=== PATIENT | male | born 1960 | race Caucasian/White ===

== ENCOUNTER 2021-07-02 13:00 | Outpatient (REF) | payer MEDICAID, SELFPAY ==
--- NOTE | ~2021-07-02 | US_ITS ---
EXAMINATION: US RETROPERITONEAL LIMITED (RENAL ONLY) CLINICAL INFORMATION: Kidney stone. COMPARISON: Previous renal ultrasound September 2017 and KUB May 2017 TECHNIQUE: Grayscale and color imaging of the kidneys FINDINGS: RIGHT KIDNEY: 8.6 x 5.4 x 5.6 cm (SAG x AP x TRV). The right kidney is smaller than the left. There may be right renal cortical thinning. Renal cortical echogenicity is normal. No calculi or focal parenchymal lesions. No hydronephrosis. LEFT KIDNEY: 11.7 x 6.3 x 5 cm (SAG x AP x TRV). The kidney is normal in size, contour, and echogenicity. Renal cortical thickness is normal. No calculi or focal parenchymal lesions. No hydronephrosis. US/US renal BI IMPRESSION: Small right kidney. No stone seen.
== END 2021-07-02 13:01 | disposition home or self-care (01) ==
LOC: HO.US 13:00
PROVIDERS: PCP Family Medicine; Visit Provider Urology
DX: N20.0 Calculus of kidney (principal)
CPT/HCPCS: 76775

== ENCOUNTER → 2021-07-11 14:08 | Outpatient (BNVA) | payer MEDICAID, SELFPAY | PROVIDERS: PCP Family Medicine; Visit Provider Urology | DX: N20.0 Calculus of kidney (principal) | CPT/HCPCS: 99212 ==

== ENCOUNTER 2022-07-05 12:31 | Outpatient (REF) | payer MEDICAID, SELFPAY ==
--- NOTE | ~2022-07-05 | US_ITS ---
EXAMINATION: US RETROPERITONEAL LIMITED (RENAL ONLY) CLINICAL INFORMATION: Calculus of kidney. COMPARISON: Ultrasound retroperitoneal limited (renal only) 07/02/2021 and 09/29/2017. X-ray abdomen KUB 05/28/2017. TECHNIQUE: Real-time imaging of the kidneys. FINDINGS: RIGHT KIDNEY: 8.2 x 4.2 x 4.6 cm (SAG x AP x TRV). The kidney is normal in contour and echogenicity. Some cortical thinning is seen. No calculi or focal parenchymal lesions. No hydronephrosis. LEFT KIDNEY: 12.8 x 5.3 x 5.7 cm (SAG x AP x TRV). The kidney is normal in size, contour, and echogenicity. Renal cortical thickness is normal. No calculi or focal parenchymal lesions. No hydronephrosis. US/US renal BI IMPRESSION: The right kidney is smaller and mildly atrophic compared to the left. No renal calculi are seen nor have they ever been seen on the available imaging studies.
== END 2022-07-05 12:32 | disposition home or self-care (01) ==
LOC: HO.US 12:31
PROVIDERS: PCP Family Medicine; Visit Provider Urology
DX: N20.0 Calculus of kidney (principal)
CPT/HCPCS: 76775

== ENCOUNTER → 2022-07-11 11:25 | Outpatient (BNVA) | payer MEDICAID, SELFPAY | PROVIDERS: PCP Family Medicine; Visit Provider Urology | DX: N52.9 Male erectile dysfunction, unspecified (principal); N20.0 Calculus of kidney | CPT/HCPCS: 99212 ==

== ENCOUNTER 2023-07-08 11:31 | Outpatient (REF) | payer BC, OTHER, SELFPAY ==
--- NOTE | ~2023-07-08 | US_ITS ---
EXAMINATION: US RETROPERITONEAL LIMITED (RENAL ONLY) CLINICAL INFORMATION: Calculus of kidney. COMPARISON: Renal ultrasound 07/05/2022 and 07/02/2021. X-ray KUB 05/28/2017. TECHNIQUE: Real-time imaging of the kidneys. FINDINGS: RIGHT KIDNEY: 9.2 x 5.4 x 5.1 cm (SAG x AP x TRV). The kidney is normal in size, contour, and echogenicity. Renal cortical thickness is normal. No calculi or focal parenchymal lesions. No hydronephrosis. LEFT KIDNEY: 11.4 x 5.8 x 4.9 cm (SAG x AP x TRV). The kidney is normal in size, contour, and echogenicity. Renal cortical thickness is normal. No calculi or focal parenchymal lesions. No hydronephrosis. US/US renal BI IMPRESSION: No renal calculi or hydronephrosis of either kidney.
== END 2023-07-08 11:32 | disposition home or self-care (01) ==
LOC: HO.US 11:31
PROVIDERS: PCP Family Medicine; Visit Provider Urology
DX: N20.0 Calculus of kidney (principal)
CPT/HCPCS: 76775

== ENCOUNTER 2023-07-17 11:29 | Outpatient (AMB) | payer BC, MEDICAID, SELFPAY ==
--- NOTE | 2023-07-17 11:38 | MHC.OFFVIS ---
Intake Intake Visit Reasons: 1Y US(SET) Intake Note: Patient presents today for a yearly follow up/US Meds- (Tadalafil) Allergies to Antibiotic- No Known Allergies Blood Thinner- None Patient stated he uses Tadalafil when he need it. Operations Dispatcher Required: No Accompanied by: Self / Same As Patient Allergies No Known Allergies [No Known Allergies*] Allergy (Verified 07/17/23 11:44) Medication List - Last Reconciled 07/17/23 by Vijay Mora MD tadalafil 20 mg PO ONCE PRN 30 days HPI HPI Comments History of Present Illness Details Griffin is a pleasant male. He is a patient of Dr. Oakley. He seen for the following urologic conditions - nephrolithiasis - erectile dysfunction Yearly No stone seen Courage fluids Continue tadalafil 20 mg on demand 12 month follow-up imaging Erectile dysfunction Tadalafil 20 mg p.r.n. Nephrolithiasis Prior history ESWL x2 Conservative management with fluid intake Imaging - 06/12 renal ultrasound small right kidney no stone seen - 06/13 renal ultrasound small right kidney stone - 06/14 renal ultrasound no stones seen PSA followed with PCP [facility] Medical History Renal stones Review of Systems Const Denies chills and Denies fever(s) Card Reports no additional complaints and Denies syncope Resp Denies cough GI Denies abdominal pain and Denies heartburn Reports as per HPI and Denies change in libido Neuro Denies syncope Psych Denies change in libido Endo Denies change in libido Physical Exam Const General: cooperative, healthy appearing, comfortable and no acute distress Orientation/consciousness: patient oriented x3 HEENT Face and sinus: Yes normal facial exam Mouth: moist mucous membranes Neck Neck: Yes normal visual inspection, Yes full ROM and Yes trachea midline Chest Chest palpation & inspection: normal inspection of the chest Resp Effort & Inspection: normal respiratory effort, able to speak in complete sentences and no respiratory distress GI Inspection: Yes normal to inspection Back/Spine/Pelvis Cervical Spine: normal cervical lordosis Thoracic/Lumbar Spine: thoracic and lumbar spine normal to inspection Skin General skin exam: no rashes or lesions noted Neuro General: patient oriented x3, gait normal, tone normal and moves all extremities Extrem General: Yes normal to inspection and Yes capillary refill normal Assessment & Plan Assessment & Plan (1) Erectile dysfunction: Code(s): N52.9 - Male erectile dysfunction, unspecified (2) Renal stones: Code(s): N20.0 - Calculus of kidney Plan Twelve month follow-up Orders: Orders US renal BI 12 Months N20.0 - Calculus of kidney Prostate Specific Antigen 364 Days N20.0 - Calculus of kidney Medications: Refilled tadalafil 20 mg PO ONCE 30 days PRN 30 tabs 1RF sexual activity N52.9 - Male erectile dysfunction, unspecified Patient Instructions: Imaging studies, laboratory and physical exam results were discussed and reviewed in detail. No major barriers to patient understanding were identified. An opportunity to ask questions regarding the treatment plan was provided. All questions were answered. The patient expressed understanding and agreement with the above treatment plan. The patient is aware they should contact our office by phone for worsening of their current condition or the appearance of new urologic symptoms. Compliance is encouraged with any medications and followup testing that is ordered. It is a privilege to participate in the urologic care of your patient. If you have any questions or concerns regarding treatment for the above conditions, or other urologic issues, please do not hesitate to contact me. The office telephone contact is [phone]. This note is constructed using voice recognition software. While every effort has been made to ensure accuracy career services assistant errors may have been included. Yours sincerely, Dr Vijay Mora MD, LIN[facility] - Urology Providers of Expert, Compassionate Care for the Genitourinary System Coding Level of Care Code Est Pt Level 4 (22826) Diagnoses Erectile dysfunction N52.9 Renal stones N20.0
== END 2023-07-17 12:26 | disposition home or self-care (01) ==
PROVIDERS: PCP Family Medicine; Visit Provider Urology
DX: N52.9 Male erectile dysfunction, unspecified (principal); N20.0 Calculus of kidney
CPT/HCPCS: 99213

== ENCOUNTER → 2023-07-17 11:29 | Outpatient (BNVA) | payer BC, SELFPAY | PROVIDERS: Visit Provider Urology ==

== ENCOUNTER 2024-07-05 11:31 | Outpatient (REF) | payer BC, SELFPAY ==
--- NOTE | ~2024-07-05 | US_ITS ---
CLINICAL HISTORY: N20.0 - Calculus of kidney US Renal Comparison: US/SR - US RENAL BI - 07/08/23 11:45 EDT Findings: Right kidney normal size and echotexture, 10 cm length. Left kidney normal size and echotexture, 11 cm length. No calculi noted. No hydronephrosis of either kidney. Normal color Doppler IMPRESSION: 1. Normal kidneys. This document has been electronically signed by: Abel Garza MD on 07/06/2024 13:15:22
--- OUTSIDE RECORDS SUMMARY | 2024-07-05 13:42 | XMS_ITS | Encounter Summary ---
Author Organization [employer] Address 75 [facility] 7 [place] [address] Care Team Providers Care Watch Guard Gate Name Role Phone Unavailable Primary Care Provider Unavailabl e Encounter Details Date Type Department Care Team (Latest Contact Info) Description 08/06/2018 Abstract [facility] CONVERSIONS Dental, Provider, DDS Social History Tobacco Use Types Packs/Day Years Used Date Smoking Tobacco: Never Assessed Sex and Gender Information Value Date Recorded Sex Assigned at Male 09/05/2022 10:33 AM EDT Legal Sex Male 5:36 PM EDT Gender Identity Male 09/05/2022 10:33 AM EDT Sexual Orientation Straight 09/05/2022 10 :33 AM EDT documented as of this encounter Plan of Treatment Upcoming Encounters Date Type Department Care Team (Late st Contact Info) Description 07/28/2024 12:00 PM EDT Office Visit [facility] DENTAL [address] [place] [address] Madina Lazaro [address] [place] [address] 02/02/2025 11:00 AM EDT Office Visit [facility] DENTAL [address] [place] [address] Madina Lazaro [address] [place] [address] documented as of this encounter Visit Diagnoses Not on filedocumented in this encounter
--- OUTSIDE RECORDS SUMMARY | 2024-07-05 13:42 | XMS_ITS | Encounter Summary ---
Author Organization [employer] Address [address] [place] [address] Care Team Providers Care Mountain Bike Guide Name Role Phone Unavailable Primary Care Provider Unavailabl e Reason for Visit * Reason Comments Med Refill Encounter Details Date Type Department Care Team (Late st Contact Info) Description 03/24/2024 Refill [facility] DENTAL [address] [place] [address] Ritu Ramirez DDS [address] [place] [address] Social History Tobacco Use Types Packs/Day Years Used Date Smoking Tobacco: Never Assessed Sex and Gender Information Value Date Recorded Sex Assigned at Male 09/05/2022 10:33 AM EDT Legal Sex Male 5:36 PM EDT Gender Identity Male 09/05/2022 10:33 AM EDT Sexual Orientation Straight 09/05/2022 10 :33 AM EDT documented as of this encounter Miscellaneous Notes * Telephone Encounter - Ritu Ramirez DDS - 03/25/2024 10:28 AM EST Okay to refill Prevident toothpaste.ARR documented in this encounter Plan of Treatment Upcoming Encounters Date Type Department Care Team (Late st Contact Info) Description 07/28/2024 12:00 PM EDT Office Visit [facility] DENTAL [address] [place] [address] Madina Lazaro [address] [place] [address] 02/02/2025 11:00 AM EDT Office Visit [facility] DENTAL [address] [place] [address] Madina Lazaro [address] [place] [address] documented as of this encounter Visit Diagnoses Not on filedocumented in this encounter
--- OUTSIDE RECORDS SUMMARY | 2024-07-05 13:42 | XMS_ITS | Encounter Summary ---
Author Organization [employer] Address [address] [place] [address] [place] [address] Care Team Providers Care Manager Rfid Name Role Phone Unavailable Primary Care Provider Unavailabl e Reason for Visit * Reason Comments Med Refill Encounter Details Date Type Department Care Team (Late st Contact Info) Description 03/22/2024 Refill [facility] DENTAL [address] [place] [address] Ritu Ramirez DDS [address] [place] [address] Social History Tobacco Use Types Packs/Day Years [...] Description 07/28/2024 12:00 PM EDT Office Visit [facility] DENTAL [address] [place] [address] Madina Lazaro [address] [place] [address] 02/02/2025 11:00 AM EDT Office Visit [facility] DENTAL [address] [place] [address] Madina Lazaro [address] [place] [address] documented as of this encounter Visit Diagnoses Not on filedocumented in this encounter
--- OUTSIDE RECORDS SUMMARY | 2024-07-05 13:42 | XMS_ITS | Encounter Summary ---
Author Organization [employer] Address 75 [facility] 7 [place] [address] Care Team Providers Care Food Safety Technician Name Role Phone Unavailable Primary Care Provider Unavailabl e Encounter Details Date Type Department Care Team (Latest Contact Info) Description 08/17/2020 Abstract [facility] CONVERSIONS Dental, Provider, DDS Social [...] Description 07/28/2024 12:00 PM EDT Office Visit [facility][1] DENTAL [address] [place] [address] Madina Lazaro [address] [place] [address] 02/02/2025 11:00 AM EDT Office Visit [facility][1] DENTAL [address] [place] [address] Madina Lazaro [address] [place] [address] documented as of this encounter Visit Diagnoses Not on filedocumented in this encounter
--- OUTSIDE RECORDS SUMMARY | 2024-07-05 13:42 | XMS_ITS | Clinical Summary ---
Author Organization [employer] Address 75 [facility] 7 [place] [address] Care Team Providers Care Fish Warden Name Role Phone Unavailable Primary Care Provider Unavailabl e Allergies No known active allergies Medications amoxicillin (Amoxil) 875 MG tablet Take 875 mg by mouth 2 times daily. 06/05/2023 Active Sodium Fluoride 5000 PPM 1.1 % paste APPLY 1 DOSE TO TEETH 2 TIMES DAILY. 100 g 2 03/25/2024 Active Social History Tobacco Use Types Packs/Day Years Used Date Smoking Tobacco: Never Assessed Sex and Gender Information Value Date Recorded Sex Assigned at Male 09/05/2022 10:33 AM EDT Legal Sex Male 5:36 PM EDT Gender Identity Male 09/05/2022 10:33 AM EDT Sexual Orientation Straight 09/05/2022 10 :33 AM EDT Plan of Treatment Upcoming Encounters Date Type Department Care Team (Late st Contact Info) Description 07/28/2024 12:00 PM EDT Office Visit [facility] DENTAL [address] [place] [address] Madina Lazaro [address] [place] [address] 02/02/2025 11:00 AM EDT Office Visit [facility] DENTAL [address] [place] [address] Madina Lazaro [address] [place] [address] Health Maintenance Due Date Last Done Comments CT Colonography 1958 Colonoscopy 1958 Colorectal Cancer Screening 1958 Depression Screening 1958 FIT DNA/Cologuard 1958 FIT 1958 FOBT 1958 Lipid Panel 1958 SDOH Screening 1958 Sigmoidoscopy 1958 Alcohol/Substance Use Screening 1970 Tobacco Screening 1970 Hepatitis C Screening 1976 Pneumococcal Vaccine: 50+ Years (1 of 1 - PCV) 2008 Zoster Vaccines (1 of 2) 2008 Dental X-Ray: Full Mouth 02/16/2022 02/15/2019, 04/22 Dental Oral Exam 05/17/2023 11/13/2022, 07/2020, 06/15/2020, Additional history exists Dental X-Ray: Bitewings 11/15/2023 11/14/19 23, 08/17/2020, 02/15/2019, Additional history exists COVID-19 Vaccine ( - season) 2023 Influenza Vaccine (#1) 2023 Dental Prophylaxis 01/10/2024 07/09/2023, 0 11/13/2022, 03/18/2022, Additional history exists DTaP/Tdap/Td Vaccines (2 - Td or Tdap) 02/24/2030 02/25/2020, 11/13/2009 RSV Patients and Patients Aged 60 years or older (1 - 1-dose 75+ series) 2033 HIB Vaccines Aged Out No longer eligi ble based on patient's age to complete this topic HPV Vaccines Aged Out No longer eligi ble based on patient's age to complete this topic Hepatitis A Vaccines Aged Out No long er eligible based on patient's age to complete this topic Hepatitis B Vaccines Aged Out No long er eligible based on patient's age to complete this topic IPV Vaccines Aged Out No longer eligi ble based on patient's age to complete this topic Meningococcal Vaccine Aged Out No arnol jeanine eligible based on patient's age to complete this topic RSV under 20 months Aged Out No longe r eligible based on patient's age to complete this topic Rotavirus Vaccines Aged Out No longer eligible based on patient's age to complete this topic Procedures Procedure Name Priority Date/Time Associated Diagnosis Comments PROPHYLAXIS - ADULT Routine 07/09/2023 1 2:00 PM EDT BITEWINGS - 4 RADIOGRAPHIC IMAGES Routine 11/13/2022 2:00 PM EDT PERIODIC ORAL EVALUATION - ESTABLISHED PATIENT Routine 11/13/2022 2:00 PM EDT INTRAORAL - COMPLETE SERIES OF RADIOGRAPHIC IMAGES Routine 02/15/2019 12:00 AM EDT from Last 3 Months or Most Recently Relevant to Health Maintenance Insurance [place] AD[place] D[facility] - [facility]
--- OUTSIDE RECORDS SUMMARY | 2024-07-05 13:42 | XMS_ITS | Encounter Summary ---
Author Organization [employer] Address [address] [place] [address] [place] [address] Care Team Providers Care Senior Merchandiser Name Role Phone Unavailable Primary Care Provider Unavailabl e Reason for Visit * Reason Comments Med Refill Encounter Details Date Type Department Care Team (Late st Contact Info) Description 03/22/2024 Refill [facility] DENTAL [address] [place] [address] Ritu Ramirez DDS [address] [place] [address] Social History Tobacco Use Types Packs/Day Years [...] Description 07/28/2024 12:00 PM EDT Office Visit [facility] DENTAL [address] [place] [address] Madina Lazaro [address] [place] [address] 02/02/2025 11:00 AM EDT Office Visit [facility] DENTAL [address] [place] [address] Madina Lazaro [address] [place] [address] documented as of this encounter Visit Diagnoses Not on filedocumented in this encounter
== END 2024-07-05 11:32 | disposition home or self-care (01) ==
LOC: HO.US 11:31
PROVIDERS: PCP Family Medicine; Visit Provider Urology
DX: N20.0 Calculus of kidney (principal)
CPT/HCPCS: 76775

== ENCOUNTER → 2024-07-05 11:35 | Outpatient (BNV) | payer BC, SELFPAY | PROVIDERS: PCP Family Medicine; Visit Provider Radiology Diagnostic Radiology | DX: N20.0 Calculus of kidney (principal) | CPT/HCPCS: 76775 ==

== ENCOUNTER 2024-07-13 11:30 | Outpatient (AMB) | payer BC, MEDICAID, SELFPAY ==
--- NOTE | 2024-07-13 11:32 | MHC.OFFVIS ---
Intake Visit Reasons: 1y/US Intake Note: Patient presents today for a yearly follow up/US Meds- (Tadalafil) Allergies to Antibiotic- No Known Allergies Blood Thinner- None. Galley Worker Required: No Accompanied by: Self / Same As Patient Allergies No Known Allergies [No Known Allergies*] Allergy (Verified 07/13/24 11:32) HPI Comments Details: Griffin is a pleasant male. He is a patient of Dr. Oakley. He seen for the following urologic conditions - nephrolithiasis - erectile dysfunction Yearly No stone seen Encourage fluids with lemon water Continue tadalafil 20 mg on demand 12 month follow-up imaging Erectile dysfunction Tadalafil 20 mg p.r.n. Nephrolithiasis Prior history ESWL x2 Conservative management with fluid intake Imaging - 06/12 renal ultrasound small right kidney no stone seen - 06/13 renal ultrasound small right kidney stone - 06/14 renal ultrasound no stones seen - 06/15 renal ultrasound no stone seen PSA followed with PCP [facility] Medical History Renal stones Review of Systems Const Denies chills and Denies fever(s) Card Reports no additional complaints and Denies syncope Resp Denies cough GI Denies abdominal pain and Denies heartburn Reports as per HPI and Denies change in libido Neuro Denies syncope Psych Denies change in libido Endo Denies change in libido Physical Exam Const General: cooperative, healthy appearing, comfortable and no acute distress Orientation/consciousness: patient oriented x3 HEENT Face and sinus: Yes normal facial exam Mouth: moist mucous membranes Neck Neck: Yes normal visual inspection, Yes full ROM and Yes trachea midline Chest Chest palpation & inspection: normal inspection of the chest Resp Effort & Inspection: normal respiratory effort, able to speak in complete sentences and no respiratory distress GI Inspection: Yes normal to inspection Back/Spine/Pelvis Cervical Spine: normal cervical lordosis Thoracic/Lumbar Spine: thoracic and lumbar spine normal to inspection Skin General skin exam: no rashes or lesions noted Neuro General: patient oriented x3, gait normal, tone normal and moves all extremities Extrem General: Yes normal to inspection and Yes capillary refill normal Assessment & Plan Assessment & Plan (1) Renal stones: Code(s): N20.0 - Calculus of kidney Category: Medical (2) Erectile dysfunction: Code(s): N52.9 - Male erectile dysfunction, unspecified Category: Medical Plan Twelve month follow-up renal imaging Orders: Orders US renal BI 12 Months N20.0 - Calculus of kidney Patient Instructions: This note is constructed using voice recognition software. While every effort has been made to ensure accuracy software quality specialist errors may have been included. Imaging studies, laboratory and physical exam results were discussed and reviewed in detail. No major barriers to patient understanding were identified. An opportunity to ask questions regarding the treatment plan was provided. All questions were answered. The patient expressed understanding and agreement with the above treatment plan. The patient is aware they should contact our office by phone for worsening of their current condition or the appearance of new urologic symptoms. Compliance is encouraged with any medications and followup testing that is ordered. It is a privilege to participate in the urologic care of your patient. If you have any questions or concerns regarding treatment for the above conditions, or other urologic issues, please do not hesitate to contact me. The office telephone contact is [phone]. Sincerely, Dr Vijay Mora MD, [facility] [place] - Urology Compassionate Specialist Care for the Genitourinary System Coding Level of Care Code Est Pt Level 4 (92694) Diagnoses Renal stones N20.0 Erectile dysfunction N52.9
--- OUTSIDE RECORDS SUMMARY | 2024-07-13 14:17 | XMS_ITS | Encounter Summary ---
Author Organization [employer] Address 75 [facility] 7 [place] [address] Care Team Providers Care Application Integration Architect Name Role Phone Unavailable Primary Care Provider [...] PM EDT Office Visit [facility] DENTAL [address] [place] [address] Madina Laazro [address] [place] [address] 02/02/2025 11:00 AM EDT Office Visit [facility] DENTAL [address] [place] [address] Madina Lazaro [address] [place] [address] documented as of this encounter Visit Diagnoses Not on filedocumented in this encounter
--- OUTSIDE RECORDS SUMMARY | 2024-07-13 14:17 | XMS_ITS | Encounter Summary ---
Author Organization [employer] Address [address] [place] [address] Care Team Providers Care Toolroom Checker Name Role Phone Unavailable Primary Care Provider Unavailabl e Reason for Visit * Reason Comments Med Refill Encounter Details Date Type Department Care Team (Late st Contact Info) Description 03/24/2024 Refill [facility] DENTAL [address] [place] [address] Ritu Ramirez DDS [address] [place] [address] Social History Tobacco Use Types Packs/Day Years [...] Description 07/28/2024 12:00 PM EDT Office Visit [facility] DENTAL [address] [place] [address] Madina Lazaro [address] [place] [address] 02/02/2025 11:00 AM EDT Office Visit [facility] DENTAL [address] [place] [address] Madina Lazaro [address] [place] [address] documented as of this encounter Visit Diagnoses Not on filedocumented in this encounter
--- OUTSIDE RECORDS SUMMARY | 2024-07-13 14:17 | XMS_ITS | Clinical Summary ---
Author Organization [employer] Address 75 [facility] 7 [place] [address] Care Team Providers Care Pediatrician Name Role Phone Unavailable Primary Care Provider [...] Description 07/28/2024 12:00 PM EDT Office Visit [facility] DENTAL [address] [place] [address] Madina Lazaro [address] [place] [address] 02/02/2025 11:00 AM EDT Office Visit [facility] DENTAL [address] [place] [address] Madina Lazaro [address] [place] [address] Health Maintenance Due Date Last Done Comments [...] Insurance [place] - [facility]
--- OUTSIDE RECORDS SUMMARY | 2024-07-13 14:17 | XMS_ITS | Encounter Summary ---
Author Organization [employer] Address 75 [facility] 7 [place] [address] Care Team Providers Care Assistant Professor Of Archaeology Name Role Phone Unavailable Primary Care Provider [...] Description 07/28/2024 12:00 PM EDT Office Visit [facility] DENTAL [address] [place] [address] Madina Lazaro [address] [place] [address] 02/02/2025 11:00 AM EDT Office Visit [facility] DENTAL [address] [place] [address] Madina Lazaro [address] [place] [address] documented as of this encounter Visit Diagnoses Not on filedocumented in this encounter
--- OUTSIDE RECORDS SUMMARY | 2024-07-13 14:17 | XMS_ITS | Encounter Summary ---
Author Organization [employer] Address [address] [place] [address] [place] [address] Care Team Providers Care Medical Technologist Name Role Phone Unavailable Primary Care Provider Unavailabl e Reason for Visit * Reason Comments Med Refill Encounter Details Date Type Department Care Team (Late st Contact Info) Description 03/22/2024 Refill [facility] DENTAL [address] [place] [address] Ritu Ramirez DDS [address] [place] [address] Social History Tobacco Use Types Packs/Day Years [...] Description 07/28/2024 12:00 PM EDT Office Visit [facility] DENTAL [address] [place] [address] Madina Lazaro [address] [place] [address] 02/02/2025 11:00 AM EDT Office Visit [facility] DENTAL [address] [place] [address] Madina Lazaro [address] [place] [address] documented as of this encounter Visit Diagnoses Not on filedocumented in this encounter
--- OUTSIDE RECORDS SUMMARY | 2024-07-13 14:17 | XMS_ITS | Encounter Summary ---
Author Organization [employer] Address [address] [place] [address] [place] [address] Care Team Providers Care Front Office Representative Name Role Phone Unavailable Primary Care Provider Unavailabl e Reason for Visit * Reason Comments Med Refill Encounter Details Date Type Department Care Team (Late st Contact Info) Description 03/22/2024 Refill [facility] DENTAL [address] [place] [address] Ritu Ramirez DDS [address] [place] [address] Social History Tobacco Use Types Packs/Day Years [...] Description 07/28/2024 12:00 PM EDT Office Visit [facility] DENTAL [address] [place] [address] Madina aLzaro [address] [place] [address] 02/02/2025 11:00 AM EDT Office Visit [facility] DENTAL [address] [place] [address] Madina Lazaro [address] [place] [address] documented as of this encounter Visit Diagnoses Not on filedocumented in this encounter
== END 2024-07-13 12:10 | disposition home or self-care (01) ==
LOC: HO.HUSH 11:30
PROVIDERS: PCP Family Medicine; Visit Provider Urology
DX: N20.0 Calculus of kidney (principal); N52.9 Male erectile dysfunction, unspecified
CPT/HCPCS: 99214

== ENCOUNTER → 2024-07-13 11:30 | Outpatient (BNVA) | payer BC, MEDICAID, SELFPAY | PROVIDERS: PCP Family Medicine; Visit Provider Urology ==

== ENCOUNTER 2024-09-27 13:06 | Outpatient (REF) | payer BC, MEDICAID, SELFPAY ==
[2024-09-27 14:08] LABS: Appearance Urine Clear; Color Urine Yellow; Glucose Urine UA Negative (Negative); Leukocyte Esterase Urine Trace (Negative); Nitrite Urine Negative (Negative); Specific Gravity - Urine 1.025 (1.005-1.025); UMIC TRIGGER UA YES; Urine Blood Small (1+) (Negative); Urine Ketones Trace mg/dL (Negative); Urine Protein Trace mg/dL (Neg-Trace)
[2024-09-27 14:11] LABS: Bacteria Urine None Seen (None Seen); Hyaline Casts Urine 0-2 /LPF (0-2); Squamous Epithelial Cell Urine 0-2 /HPF (0-2); WBC Urine 0-5 /HPF (0-5)
--- OUTSIDE RECORDS SUMMARY | 2024-09-27 14:49 | XMS_ITS | Encounter Summary ---
Author Organization [facility] Address [address] [place] [address] Care Team Providers Care Underground Foreman Name Role Phone Unavailable Primary Care Provider Unavailabl e Reason for Visit * Reason Comments Med Refill Encounter Details Date Type Department Care Team (Late st Contact Info) Description 03/24/2024 Refill [place] [facility] DENTAL [address] [place] [address] Ritu Ramirez DDS [address] [place] [address] Social History Tobacco Use Types Packs/Day Years [...] documented in this encounter Plan of Treatment Not on file documented as of this encounter Visit Diagnoses Not on filedocumented in this encounter
== END 2024-09-27 13:07 | disposition home or self-care (01) ==
LOC: HO.LAB 13:06
PROVIDERS: PCP Family Medicine; Visit Provider Urology
DX: N20.0 Calculus of kidney (principal)
CPT/HCPCS: 81001; 87086

== ENCOUNTER 2024-10-08 10:31 | Outpatient (REF) | payer MEDICARE, MEDICAID, SELFPAY ==
--- NOTE | ~2024-10-08 | US_ITS ---
CLINICAL HISTORY: N20.0 - Calculus of kidney US renal with Color Doppler Comparison: Prior relevant studies were not made available for comparison at the time of this interpretation. Findings: Right kidney normal size and echotexture, 9.0 cm length. No hydronephrosis, calculus, or mass. Normal color flow. Left kidney normal size and echotexture, 12.0 cm length. Mild hydronephrosis. Normal color flow. No nephrolithiasis. No renal masses. Impression: 1. Mild left hydronephrosis and proximal left hydroureter without evidence of nephrolithiasis. This document has been electronically signed by: Kenneth Wells MD on 10/08/2024 17:01:30
--- OUTSIDE RECORDS SUMMARY | 2024-10-08 10:55 | XMS_ITS | Encounter Summary ---
Author Organization [employer] Address [address] [place] [address] Care Team Providers Care Deposit Clerk Name Role Phone Unavailable Primary Care Provider Unavailabl e Reason for Visit * Reason Comments Med Refill Encounter Details Date Type Department Care Team (Late st Contact Info) Description 03/24/2024 Refill [place] [facility] DENTAL [address] [place] [address] Ritu Ramirez DDS [address] [place] [address] Social History Tobacco Use Types Packs/Day Years [...]
== END 2024-10-08 10:32 | disposition home or self-care (01) ==
LOC: HO.US 10:31
PROVIDERS: PCP Family Medicine; Visit Provider Urology
DX: N20.0 Calculus of kidney (principal)
CPT/HCPCS: 76775

== ENCOUNTER → 2024-10-08 10:33 | Outpatient (BNV) | payer MEDICARE, MEDICAID, SELFPAY | PROVIDERS: PCP Family Medicine; Visit Provider Radiology Diagnostic Radiology | DX: N13.30 Unspecified hydronephrosis (principal) | CPT/HCPCS: 76775 ==

== ENCOUNTER 2024-10-27 09:13 | Outpatient (AMB) | payer BC, MEDICAID, SELFPAY ==
--- NOTE | 2024-10-27 09:15 | A.OFFVIS_ITS ---
Intake Visit Reasons: Possible enlarged prostate Intake Note: Patient is present for POSSIBLE ENLARGE PROSTATE Urology Medication:TADALAFIL Antibiotic Allergy:NONE Blood Thinner:NONE Business Continuity Planner Required: No Allergies No Known Allergies (No Known Allergies*) Allergy (Verified 10/27/24 09:16) HPI Comments Details: Griffin is a pleasant male. He is a patient of Dr. Oakley. He seen for the following urologic conditions - nephrolithiasis - erectile dysfunction Presents for issues relating voiding Weakness of stream inability to urinate greater than 12-18 inches Feeling of incomplete bladder emptying Prior use tamsulosin with retrograde side effects Encourage Trial alfuzosin Would benefit from 2 month follow-up, bladder ultrasound, uroflow Erectile dysfunction Tadalafil 20 mg p.r.n. Nephrolithiasis Prior history ESWL x2 Conservative management with fluid intake Imaging - 06/12 renal ultrasound small right kidney no stone seen - 06/13 renal ultrasound small right kidney stone - 06/14 renal ultrasound no stones seen - 06/15 renal ultrasound no stone seen PSA followed with PCP [facility] Medical History Renal stones Review of Systems Const Denies chills and Denies fever(s) Card Reports no additional complaints and Denies syncope Resp Denies cough GI Denies abdominal pain and Denies heartburn Reports as per HPI and Denies change in libido Neuro Denies syncope Psych Denies change in libido Endo Denies change in libido Physical Exam Const General: cooperative, healthy appearing, comfortable and no acute distress Orientation/consciousness: patient oriented x3 HEENT Face and sinus: Yes normal facial exam Mouth: moist mucous membranes Neck Neck: Yes normal visual inspection, Yes full ROM and Yes trachea midline Chest Chest palpation & inspection: normal inspection of the chest Resp Effort & Inspection: normal respiratory effort, able to speak in complete sentences and no respiratory distress GI Inspection: Yes normal to inspection Back/Spine/Pelvis Cervical Spine: normal cervical lordosis Thoracic/Lumbar Spine: thoracic and lumbar spine normal to inspection Skin General skin exam: no rashes or lesions noted Neuro General: patient oriented x3, gait normal, tone normal and moves all extremities Extrem General: Yes normal to inspection and Yes capillary refill normal Assessment & Plan Assessment & Plan (1) Bladder outlet obstruction: Code(s): N32.0 - Bladder-neck obstruction Category: Medical Plan 1. Hydronephrosis - Monitor for changes 2. Hematuria - Evaluate with imaging 3. Benign Prostatic Hyperplasia - Start alfuzosin - Follow-up with ultrasound and flow test 4. Prostatitis - Manage inflammation Discussion Notes I discussed with the patient the presence of hydronephrosis, which may be transient, and the need for monitoring. We reviewed the occurrence of hematuria and the importance of evaluating underlying causes through imaging. I recommended starting alfuzosin to address urinary flow issues related to benign prostatic hyperplasia and scheduled a follow-up in two months for further assessment. We also considered management strategies for prostatitis. Patient Instructions - Take alfuzosin as prescribed to improve urinary flow - Monitor for any changes in urinary symptoms and report them - Follow up in two months for ultrasound and urination flow test Orders: Orders US bladder Today N32.0 - Bladder-neck obstruction Medications: New alfuzosin ER 10 mg PO DAILY 30 tabs 2RF 30 days Patient Instructions: This note is constructed using voice recognition software. While every effort has been made to ensure accuracy metal drilling machine operator errors may have been included. Imaging studies, laboratory and physical exam results were discussed and reviewed in detail. No major barriers to patient understanding were identified. An opportunity to ask questions regarding the treatment plan was provided. All questions were answered. The patient expressed understanding and agreement with the above treatment plan. The patient is aware they should contact our office by phone for worsening of their current condition or the appearance of new urologic symptoms. Compliance is encouraged with any medications and followup testing that is ordered. It is a privilege to participate in the urologic care of your patient. If you have any questions or concerns regarding treatment for the above conditions, or other urologic issues, please do not hesitate to contact me. The office telephone contact is [phone]. Sincerely, Dr Vijay Mora MD, [facility] - Urology Compassionate Specialist Care for the Genitourinary System Coding Level of Care Code Est Pt Level 4 (25632) Diagnoses Bladder outlet obstruction N32.0
--- OUTSIDE RECORDS SUMMARY | 2024-10-27 09:31 | XMS_ITS | Encounter Summary ---
Author Organization [employer] Address [address] [place] [address] Care Team Providers Care Pickling Machine Operator Name Role Phone Unavailable Primary Care Provider Unavailabl e Reason for Visit * Reason Comments Med Refill Encounter Details Date Type Department Care Team (Late st Contact Info) Description 03/24/2024 Refill [place] [facility] DENTAL [address] [place] [address] Ritu Ramirez DDS [address] [place] [address] Social History Tobacco Use Types Packs/Day Years [...]
== END 2024-10-27 10:23 | disposition home or self-care (01) ==
PROVIDERS: PCP Family Medicine; Visit Provider Urology
DX: N32.0 Bladder-neck obstruction (principal)
CPT/HCPCS: 99214

== ENCOUNTER 2024-12-06 12:37 | Outpatient (REF) | payer BC, MEDICAID, SELFPAY ==
--- NOTE | ~2024-12-06 | US_ITS ---
CLINICAL HISTORY: N32.0 - Bladder-neck obstruction US prostate and bladder Comparison: None provided Findings: The urinary bladder is unremarkable. Prevoid volume 424 mL. Post void volume 192 mL. Bilateral ureteral jets visualized. Prostate heterogeneous and enlarged. Prostate volume 35 mL. No focal abnormality noted. Impression: Postvoid residual 192 mL Heterogeneous enlarged prostate This document has been electronically signed by: Dinesh Davis MD on 12/07/2024 20:03:06
--- OUTSIDE RECORDS SUMMARY | 2024-12-06 13:34 | XMS_ITS | Encounter Summary ---
Author Organization [employer] Address [address] [place] [address] Care Team Providers Care Survey Coordinator Name Role Phone Unavailable Primary Care Provider Unavailabl e Reason for Visit * Reason Comments Med Refill Encounter Details Date Type Department Care Team (Late st Contact Info) Description 03/24/2024 Refill [facility] DENTAL [address] [place] [address] Ritu Ramirez DDS [address] [place] [address] Social History Tobacco Use Types Packs/Day Years [...]
== END 2024-12-06 12:38 | disposition home or self-care (01) ==
LOC: HO.US 12:37
PROVIDERS: PCP Family Medicine; Visit Provider Urology
DX: N32.0 Bladder-neck obstruction (principal)
CPT/HCPCS: 76857

== ENCOUNTER → 2024-12-06 12:43 | Outpatient (BNV) | payer BC, MEDICAID, SELFPAY | PROVIDERS: PCP Family Medicine; Visit Provider Radiology Diagnostic Radiology | DX: N40.0 Benign prostatic hyperplasia without lower urinary tract symptoms (principal) | CPT/HCPCS: 76857 ==

== ENCOUNTER 2025-01-25 11:04 | Outpatient (AMB) | payer BC, MEDICAID, SELFPAY ==
--- NOTE | 2025-01-25 11:14 | MHC.OFFVIS ---
Intake Visit Reasons: Urolow /US Intake Note: Patient is present forUroflow Urology Medication:TADALAFIL Antibiotic Allergy:NONE Blood Thinner:NONE PVR : 55 mls Learning And Development Specialist Required: No Accompanied by: Self / Same As Patient Allergies No Known Allergies (No Known Allergies*) Allergy (Verified 01/25/25 11:14) HPI Comments Details: Griffin is a pleasant male. He is a patient of Dr. Oakley. He seen for the following urologic conditions - nephrolithiasis - erectile dysfunction - lower urinary tract symptoms Uroflow follow-up Q max 10 cc Recommend prostate incision 35 g prostate Lower urinary tract symptoms Progressive primarily feelings of incomplete emptying and weakness of stream Prior use of tamsulosin with retrograde ejaculation Urinary flow - 02/12 Q max 10 cc, average 5 cc, voided volume 140 cc with no residual. [place] nomogram under 25th percentile Bladder ultrasound 35 g prostate high residual Erectile dysfunction Tadalafil 20 mg p.r.n. Nephrolithiasis Prior history ESWL x2 Conservative management with fluid intake Imaging - 06/12 renal ultrasound small right kidney no stone seen - 06/13 renal ultrasound small right kidney stone - 06/14 renal ultrasound no stones seen - 06/15 renal ultrasound no stone seen PSA followed with PCP [facility] Medical History Renal stones Review of Systems Const Denies chills and Denies fever(s) Card Reports no additional complaints and Denies syncope Resp Denies cough GI Denies abdominal pain and Denies heartburn Reports as per HPI and Denies change in libido Neuro Denies syncope Psych Denies change in libido Endo Denies change in libido Physical Exam Const General: cooperative, healthy appearing, comfortable and no acute distress Orientation/consciousness: patient oriented x3 HEENT Face and sinus: Yes normal facial exam Mouth: moist mucous membranes Neck Neck: Yes normal visual inspection, Yes full ROM and Yes trachea midline Chest Chest palpation & inspection: normal inspection of the chest Resp Effort & Inspection: normal respiratory effort, able to speak in complete sentences and no respiratory distress GI Inspection: Yes normal to inspection Back/Spine/Pelvis Cervical Spine: normal cervical lordosis Thoracic/Lumbar Spine: thoracic and lumbar spine normal to inspection Skin General skin exam: no rashes or lesions noted Neuro General: patient oriented x3, gait normal, tone normal and moves all extremities Extrem General: Yes normal to inspection and Yes capillary refill normal Office Procedures Post Void Residual Post Residual Void Post Void Residual (PVR): 55 [id number] Void Residual by ultrasound AMB Uroflow Complex uroflow performed by: Vijay Mora Maximum urinary flow rate (mL/second): 10 Voided volume (mL): 150 Residual urine (mL): 0 Comments: [place] nomogram less than 20 percentile [id number] Procedure code (CPT) selection complete Assessment & Plan Assessment & Plan (1) Bladder outlet obstruction: Code(s): N32.0 - Bladder-neck obstruction Category: Medical Plan We discussed the nature of the decision and reasonable options for performing a prostate intervention. Interventions include TURP, GreenLight laser enucleation of the prostate, GreenLight laser ablation of the prostate, transurethral incision of the prostate, and I-Tend prostate procedure. Options such as medical therapy were discussed. The relative uncertainties and benefits related to each alternate procedure were adequately discussed. General surgical risks including, but not limited to, pain, bleeding, infection, myocardial infarction, pulmonary embolus, deep vein thrombosis and cerebrovascular accident which may result in further hospitalization were discussed. Full disclosure of the procedure as well as all major risks, benefits and complications were discussed including but not limited to damage to the urethra or bladder neck, recurrent BPH, retrograde ejaculation, bladder infection, urge, de joellen frequency, incomplete emptying, dysuria, remote chance of erectile dysfunction, epididymitis, and meatal stenosis. The success rate of the procedure was discussed. Success of the procedure in the short-term does not necessarily guarantee that long-term success will be maintained. Suitable follow up will need to be maintained. The patient showed understanding of discussion. An opportunity was provided for questions to be answered and wishes to proceed with the following procedure. - Transurethral incision of the prostate bipolar button Orders: Orders AMB Post Void Residual by ultrasound Today N32.0 - Bladder-neck obstruction AMB Uroflow Today N32.0 - Bladder-neck obstruction Patient Instructions: This note is constructed using voice recognition software. While every effort has been made to ensure accuracy server programmer errors may have been included. Imaging studies, laboratory and physical exam results were discussed and reviewed in detail. No major barriers to patient understanding were identified. An opportunity to ask questions regarding the treatment plan was provided. All questions were answered. The patient expressed understanding and agreement with the above treatment plan. The patient is aware they should contact our office by phone for worsening of their current condition or the appearance of new urologic symptoms. Compliance is encouraged with any medications and followup testing that is ordered. It is a privilege to participate in the urologic care of your patient. If you have any questions or concerns regarding treatment for the above conditions, or other urologic issues, please do not hesitate to contact me. The office telephone contact is [phone]. Sincerely, Dr Vijay Mora MD, [facility] - Urology Compassionate Specialist Care for the Genitourinary System Coding Level of Care Code Est Pt Level 4 (53292) Complex EM visit Add On G2211 Diagnoses Bladder outlet obstruction N32.0 CPT Codes Post Residual Void - PVR CPT Code: 82246-Ohwe Void Residual by ultrasound ([id number])
--- OUTSIDE RECORDS SUMMARY | 2025-01-25 13:45 | XMS_ITS | Clinical Summary ---
Author Organization [employer] Address [address] [facility] [address] [place] [address] Care Team Providers Care Refractory Technician Name Role Phone Unavailable Primary Care [...] 10 :33 AM EDT Plan of Treatment Health Maintenance Due Date Last Done Comments CT Colonography 1958 Colonoscopy 1958 Colorectal Cancer Screening 1958 Depression Screening 1958 FIT DNA/Cologuard 1958 FIT 1958 FOBT 1958 Lipid Panel 1958 SDOH Screening 1958 Sigmoidoscopy 1958 Alcohol/Substance Use Screening 1970 Tobacco Screening 1970 Hepatitis C Screening 1976 Pneumococcal Vaccine: 50+ Years (1 of 1 - PCV) 2008 Zoster Vaccines (1 of 2) 2008 COVID-19 Vaccine (1 - season) 2024 Influenza Vaccine (#1) 2024 Dental Oral Exam 01/28/2025 07/28/2024, , 02/22/2021, Additional history exists Dental Prophylaxis 01/28/2025 07/28/2024, 0 07/09/2023, 11/13/2022, Additional history exists Dental X-Ray: Bitewings 07/29/2025 07/29/19 25, 11/13/2022, 08/17/2020, Additional history exists Dental X-Ray: Full Mouth 07/30/2027 025, 02/15/2019, 05/17/2009 DTaP/Tdap/Td Vaccines (2 - Td or Tdap) [...] patient's age to complete this topic Meningococcal B Vaccine Aged Out No l onger eligible based on patient's age to complete [...] Procedure Name Priority Date/Time Associated Diagnosis Comments Full PROPHYLAXIS - ADULT Routine 025 12:00 PM EDT INTRAORAL - COMPLETE SERIES OF RADIOGRAPHIC IMAGES Routine 07/28/2024 12:00 PM EDT PERIODIC ORAL EVALUATION - ESTABLISHED PATIENT Routine 07/28/2024 12:00 PM EDT from Last 3 Months or Most Recently Relevant to Health Maintenance Insurance DENTAL - [facility] D[facility] - HSN FULL (MEDICAID)
--- OUTSIDE RECORDS SUMMARY | 2025-01-25 13:45 | XMS_ITS | Clinical Summary ---
Author Organization [facility] Address [address] [place] [address] Phone Care Team Providers Care Wafer Mounter Name Role Phone Dinesh Oakley MD Primary Care Provider [phone] Allergies No known active allergies Medications chlorhexidine (PERIDEX) 0.12 % solution as needed. 0 10/20/19 19 Active amoxicillin (AMOXIL) 875 MG tablet Take 875 mg by mouth as needed. 06/05/19 24 Active fluoride, sodium, (PREVIDENT 5000 BOOSTER) 1.1 % Pste Place 1.1 Applications onto teeth daily. 01/23/20 24 Active ibuprofen (ADVIL,MOTRIN) 600 MG tablet Take 600 mg by mouth every 6 (six) hours as needed. 04/29/19 25 Active amoxicillin (AMOXIL) 500 MG capsule Take 500 mg by mouth as needed (dental visits). 04/29/19 25 Active LORazepam (ATIVAN) 1 MG tablet Take 1 tablet (1 mg total) by mouth 2 (two) times a day as needed for anxiety. 20 tablet 07/15/19 25 Active albuterol (PROAIR HFA) 90 mcg/actuation inhaler Inhale 2 puffs into the lungs every 6 (six) hours as needed for wheezing. 8.5 g 1 07/15/19 25 Active ondansetron (ZOFRAN-ODT) 4 MG disintegrating tablet Take 1 tablet (4 mg total) by mouth every 8 (eight) hours as needed for nausea. 10 tablet 07/27/19 25 Active oxyCODONE 5 MG immediate release tablet Take 1 tablet (5 mg total) by mouth every 4 (four) hours as needed for pain (specific location in comments). Partial fill ok 8 tablet 07/27/19 25 Active tamsulosin (FLOMAX) 0.4 mg Cap TAKE 1 CAPSULE BY MOUTH NIGHTLY AT BEDTIME. 90 capsule 1 10/28/19 25 Active Active Problems Problem Noted Date Diagnosed Date Left ureteral stone 09/27/2024 Dyslipidemia (high LDL; low HDL) 09/27/2024 Atherosclerosis of aorta 09/27/2024 Trigger thumb of left hand 09/09/2024 Assessment & Plan (09/09/2024 12:10 PM EDT): prefers to avoid medications unless necessary. - Rest thumb, avoid exacerbating activities. - Apply ice 15 minutes, 2-3 times daily. - thumb spica splint for immobilization, available OTC. - Take OTC NSAIDs like Aleve or ibuprofen with food. - Keep appointment with Dr. Morse for evaluation and possible cortisone injection. - Overweight (BMI 25.0-29.9) 07/14/2024 Assessment & Plan (07/14/2024 1:45 PM EDT): He has gained some weight. Encouraged more cardio type activity. Check fasting labs. Orders: Lipid panel; Future Basic metabolic panel; Future Low vitamin B12 level 01/27/2024 Grief reaction 01/26/2024 Primary osteoarthritis of both hips 12/27/2022 Benign lipomatous neoplasm o f skin and subcutaneous tissue of other sites 04/30/2021 BPPV (benign paroxysmal positional vertigo), rig ht 10/04/2020 Nephrolithiasis 05/26/2017 BPH (benign prostatic hyperplasia) 05/26/2017 Resolved Problems Problem Noted Date Diagnosed Date Resolved Date Situational stress 07/14/2024 Assessment & Plan (07/14/2024 1:45 PM EDT): I recommend lorazepam to use as needed. Reviewed side effects. He will use sparingly. Reviewed habit-forming nature of this medication. Right flank pain 03/31/2019 09/27/2024 Epistaxis 03/25/2019 09/27/2024 Assessment & Plan (03/25/2019 11:44 AM EST): Mild bleeding which is probably from dry nasal mucosa. I suggest using saline nasal spray a few times a day and certainly use it before bed and this should help to resolve his symptoms. Encounters Date Type Department Care Team Description 12/08/2024 Orders Only [facility] [address] [place] [address] ProviderJoaquín MD 10/27/2024 Refill [facility] [address] [place] [address] Dinesh Oakley MD Med Change Request from Last 3 Months Immunizations Immunization Administration Dates Next Due Td, unspecified formulation 11/13/2009 Tdap 02/25/2020 Family History Relation Status Comments Father Alive Mother Alive Social History Tobacco Use Types Packs/Day Years Used Date Smoking Tobacco: Never Smokeless Tobacco: Never Alcohol Use Standard Drinks/Week Comments Yes 1 (1 standard drink = 0.6 oz pur e alcohol) Child or Family Care Answer Date Record ed Do you have problems with on e of the following making it difficult for you to work, study, or receive health care? No 09/21/2018 Education Answer Date Recorded Are you interested in more education? Not on mart e 08/16/2022 Are you concerned about learning? Not on file 08/16/2022 No 08/16/2022 No 08/16/2022 Food Answer Date Recorded Within the past 6 months we worried whether our food would run out before we got money to buy more. Never True 09/21/2018 Within the past 6 months the food we bought just didn't last and we didn't have enough money to get more. Never True 9 Paying for Meds Answer Date Recorded Do you have trouble paying for medicines? No 09/21/2018 Paying Utility Bills Answer Date Record ed Do you have trouble paying y our heating or electricity bill? I choose not to answer 09/21/2018 Transportation Answer Date Recorded Has the lack of transportati on kept you from medical appointments or from getting medications? No 09/21/2018 Digital Access Answer Date Recorded No 09/16/2022 No 09/16/2022 Reliable internet access at home? Not on file 09/16/2022 Device with a working camera? Not on file Intimate Partner Violence Answer Date R ecorded Are you denied basic needs s uch as food, clothing, or medical care? No 07/26/2024 In the past 12 months have y ou been in a relationship with a person who hurts, threatens, or tries to control you? No 07/26/2024 Are you denied basic needs s uch as food, clothing, or medical care? No 07/26/2024 In the past 12 months have y ou been in a relationship with a person who hurts, threatens, or tries to control you? 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 Not on file Not on file Last Filed Vital Signs Vital Sign Reading Time Taken Comments Blood Pressure 106/70 10/05/2024 9:45 AM EDT Pulse 65 10/05/2024 9:45 AM EDT Temperature 36.2 C (97.1 F) 10/05/2024 9:45 AM EDT Respiratory Rate 18 09/09/2024 11:03 AM EDT Oxygen Saturation 100% 10/05/2024 9:45 AM EDT Inhaled Oxygen Concentration - - Weight 80.7 kg (178 lb) 10/05/2024 9:45 AM EDT Height 165.1 cm (5' 5 ) 10/05/2024 9:45 AM EDT Body Mass Index 29.62 10/05/2024 9:45 AM EDT Plan of Treatment Upcoming Encounters Date Type Department Care Team (Late st Contact Info) Description 07/15/2025 1:00 PM EDT Office Visit [facility] [place] [facility] [address] [place] [address] [place] [address] Dinesh Oakley MD 22 [facility], [address] [place], [place] [id number] Health Maintenance Due Date Last Done Comments COLOGUARD 2003 FIT TEST 2003 FOBT 2003 SIGMOIDOSCOPY 2003 VIRTUAL COLONOSCOPY 2003 INFLUENZA VACCINE (#1) 2024 COVID-19 VACCINE ( season) 2024 PNEUMOCOCCAL VACCINES (50+ years) (1 of 1 - PCV) 02/25/2025 Postponed from 2008 (Patient Declines / Guardian Declines) ZOSTER VACCINES (1 of 2) 02/25/2025 Pos tponed from 2008 (Patient Declines / Guardian Declines) DEPRESSION SCREENING 07/14/2025 07/14/2024 LIPID PANEL 07/15/2025 07/15/2024, 0608/2018, 09/23/2018, Additional history exists COLONOSCOPY 05/25/2027 05/25/2020, 01/25/2010 COLORECTAL CANCER SCREENING 05/25/2027 SCREENING FOR DIABETES 10/06/2027 10/05/2024 Adult Td,Tdap Booster 02/24/2030 02/25/2020, 010 RSV VACCINE (1 - 1-dose 75+ series) 2033 HEPATITIS C SCREENING Completed 09/23/2018, 019 SMOKING STATUS SCREENING (Once After 26 Yrs) Completed 10/05/2024 HEPATITIS A VACCINES Aged Out No long er eligible based on patient's age to complete this topic HIB VACCINES Aged Out No longer eligi ble based on patient's age to complete this topic MENINGOCOCCAL VACCINES (ACWY) Aged Out No longer eligible based on patient's age to complete this topic MENINGOCOCCAL VACCINES (B) Aged Out N o longer eligible based on patient's age to complete this topic Medical Devices Not on file Procedures Procedure Name Priority Date/Time Associated Diagnosis Comments OUTSIDE US IMAGING REPORT ONLY Routine 12/06/2024 3:59 PM EDT LIPID PANEL Routine 07/15/2024 10:34 AM EDT Class 1 obesity due to excess calories without serious comorbidity with body mass index (BMI) of 32.0 to 32.9 in adult ENDOSCOPY, COLON 05/25/2020 11:3 5 AM EST HEPATITIS C ANTIBODY, QUALITATIVE Routine 09/23/2018 1:11 PM EDT Annual physical exam from Last 3 Months or Most Recently Relevant to Health Maintenance Results * Outside US Imaging??Report Only (12/06/2024 3:59 PM EDT) Historical Provider MD MATTHEWS OP Edited Re sult - Final * (ABNORMAL) Lipid panel (07/15/2024 10:34 AM EDT) HDL 38 mg/dL [facility] Comment: Interpretation <40 mg/dL: Low HDL cholesterol (major risk factor for CHD) Greater than or equal to 60 mg/dL: High HDL cholesterol ( negative risk factor for CHD) HDL - cholesterol is affected by a number of factors, e.g. smoking, excerise, hormones, sex and age. CHOLESTEROL 195 0 - 240 mg/dL [facility] TRIGLYCERIDES 114 30 - 160 mg/dL [facility] LDL 134(H) 50 - 129 mg/dL [facility] Comment: LDL levels in terms of risk for coronary heart disease: <100 mg/dL: Optimal 100-129 mg/dL: Near or above optimal 130-159 mg/dL: Borderline high 160-189 mg/dL: High >190 mg/dL: Very High CARDIAC RISK RATIO 5.1(H) 3.4 - 5.0 C [facility] Blood 07/15/2024 10:3 4 AM EDT 07/15/2024 10:37 AM EDT Dinesh Oakley MD LAB BLOOD ORDERABLES Final Result [address] [address] * ENDOSCOPY, COLON (05/25/2020 11:35 AM EST) Narrative Transcriptions Caden Parrish MD - 05/25/2020 11:35 AM EST Patient Name: Griffin Ferrer Attending MD:: CADEN PARRISH MD Procedure Date: 05/25/2020 11:35 AM Date of : 1960 Age: 60 Admit Type: Outpatient Gender: Male Room: [facility] 05 Referring MD: DINESH OAKLEY MD Exam Type: Colonoscopy Indications: Screening for colorectal malignant neoplasm, Last colonoscopy: January 2010 Medications: Monitored Anesthesia Care Procedure: Informed consent was obtained from the patient after discussion of the indications, limitations, alternatives, benefits, and risks of the procedure. Risks specifically discussed include but are not limited to medication reactions, missed lesions, bleeding, perforation, or the need for emergentsurgery. Throughout the procedure, the patient's bloodpressure, pulse, end-tidal CO2, and oxygen saturations were monitored continuously. The Olympus adult variable colonoscope CF-HI980L #7was introduced through the anus and advanced to the terminal ileum, with identification of theappendiceal orifice and IC valve. The colonoscopy was performed without difficulty. The patient tolerated theprocedure well. The quality of the bowel preparation was excellent. Complications: No immediate complications. Estimated blood loss:None. Findings: The terminal ileum appeared normal. Examination of the right colon was repeated in retroflexion and again in NBI. Retroflexion was also performed in the rectum. A 3 mm polyp was found in the ascending colon. The polyp was sessile. The polyp was removed with a cold snare. Resection and retrieval were complete. A 3 mm polyp was found in the hepatic flexure. The polyp was sessile. The polyp was removed with a cold snare. Resection and retrieval were complete. A 3 mm polyp was found in the transverse colon. The polyp was sessile. The polyp was removed with a cold snare. Resection and retrieval were complete. The exam was otherwise without abnormality. Impression: - The examined portion of the ileum was normal. - One 3 mm polyp in the ascending colon, removedwith a cold snare. Resected and retrieved. - One 3 mm polyp at the hepatic flexure, removedwith a cold snare. Resected and retrieved. - One 3 mm polyp in the transverse colon, removedwith a cold snare. Resected and retrieved. - The examination was otherwise normal. Recommendation: - Patient has a contact number available for emergencies. The signs and symptoms of potential delayed complications were discussed with thepatient. Return to normal activities tomorrow. Writtendischarge instructions were provided to the patient. - Await pathology results. - Repeat colonoscopy for surveillance based on pathology results. Caden Parrish CADEN PARRISH MD 05/25/2020 12:08:35 PM This report has been signed electronically. Number of Addenda: 0 Note Initiated On: 05/25/2020 11:35 AM Procedure Code(s): --- Professional --- 89697, Colonoscopy, flexible; with removal of tumor(s), polyp(s), or other lesion(s) by snare technique --- Technical --- 68892, Colonoscopy, flexible; with removal of tumor(s), polyp(s), or other lesion(s) by snare technique CPT copyright 2018 [employer]. All rights reserved. The codes documented in this report are preliminary and upon physician surgeon reviewmay be revised to meet current compliance requirements. Procedure Date: 05/25/2020 11:35:[address] [place] [address] [place] Dinesh Oakley MD GI PROCEDURE ORDERABLES Ed ited Result - Final * Hepatitis C antibody, qualitative (09/23/2018 1:11 PM EDT) HCV Negative Negative [facility] Comment: This is a screening test and should be confirmed with molecular testing Blood 09/23/2018 1:11 PM EDT 09/23/2018 1:14 PM EDT us Dinesh Oakley MD LAB BLOOD ORDERABLES Final Result [facility] [address] [place] [address] from Last 3 Months or Most Recently Relevant to Health Maintenance Insurance MEDICARE PPO BLUE REPLACEMENT [facility] MEDICARE PART A & [place] [address] [address] [address] MEDICARE PPO BLUE REPLACEMENT [address] [place], [place] [id number] MEDICARE PART A & B [facility] MEDIC[facility] RE[facility] MEDICARE PART A & B MEDICARE PPO BLUE REPLACEMENT [facility] MEDICARE PART A & B [facility] MEDICARE [facility]PO [facility] & B Care Teams Wafer Mounter Relationship Specialty Start Date End Date Dinesh Oakley MD [address] [place] [address], [address] [place] [address] [email or web address] PCP - General 02/04/17 Additional Source Comments The information contained in this document represents components of the legal health record. It is not the complete legal health record.[facility]
--- OUTSIDE RECORDS SUMMARY | 2025-01-25 13:45 | XMS_ITS | Encounter Summary ---
Author Organization [facility] Address [address] [facility] [address] [place] [address] Phone Care Team Providers Care Lockmaker Name Role Phone Dinesh Oakley MD Primary Care Provider [phone] Dinesh Oakley MD Unavailable [phone] Encounter Details Date Type Department Care Team (Late st Contact Info) Description 05/29/2017 Ancillary Orders [facility] External Provider Virtual Department [address] [place] [address] Gildardo Zelaya MD [address] [place] [address] Kidney stone Social History Tobacco Use Types Packs/Day Years Used Date Smoking Tobacco: Never Smokeless Tobacco: Never Sex and Gender Information Value Date Recorded Sex Assigned at Male 09/08/2018 7:54 PM EDT Legal Sex Male 9:51 PM EDT Gender Identity Male 09/08/2018 7:54 PM EDT Sexual Orientation Straight 09/08/2018 7: 54 PM EDT documented as of this encounter Plan of Treatment Upcoming Encounters Date Type Department Care Team (Late st Contact Info) Description 07/15/2025 1:00 PM EDT Office Visit [facility] [address] [place] [address] [place] [address] Dinesh Oakley MD 22 [facility], [address] [place] [address] [email or web address] documented as of this encounter Results * US Kidneys (06/11/2017 4:20 PM EST) Anatomical Region Laterality Modality Abdomen, Kidney Ultrasound 06/11/2017 4:22 PM EST Impressions 06/11/2017 4:23 PM EST No nephrolithiasis, hydronephrosis, or other significant renal pathology demonstrated. POS [id number] Narrative 06/11/2017 4:23 PM EST COMPARISON: 03/19/2017 ultrasound FINDINGS: Kidneys are stable in overall size with right measuring 10.2 x 6.5 cm and the left 11.2 x 6.2 cm in a longitudinal plane. No shadowing intrarenal calculi demonstrated. No solid or cystic parenchymal lesions, hydronephrosis, or gross cortical scarring are present. Procedure Note Isaac Arana MD - 06/11/2017 COMPARISON: 03/19/2017 ultrasound FINDINGS: Kidneys are stable in overall size with right measuring 10.2 x 6.5 cm andthe left 11.2 x 6.2 cm in a longitudinal plane. No shadowing intrarenalcalculi demonstrated. No solid or cystic parenchymal lesions,hydronephrosis, or gross cortical scarring are present. IMPRESSION: No nephrolithiasis, hydronephrosis, or other significant renal pathologydemonstrated. POS [id number] Gildardo Zelaya MD IMG US RENAL Fi nal Result documented in this encounter Visit Diagnoses Diagnosis Kidney stone Calculus of kidney Kidney stone Calculus of kidney documented in this encounter Additional Health Concerns Infection Onset Date Last Indicated Resolved Time CoV-Risk 12/26/2019 12/28/2019 01/09/2020 1:24 AM EDT CoV-Risk 09/10/2021 09/10/2021 09/21/2021 1:24 AM EDT documented as of this encounter Care Teams Lockmaker Relationship Specialty Start Date End Date Dinesh Oakley MD [address] [place] [address], [address] [place] [address] PCP - General 02/04/17 Dinesh Oalkey MD [address] [place] [address], [address] [place] [address] [email or web address] Insurance Assigned Provider 06/14/1712/28/22 documented as of this encounter Additional Source Comments The information contained in this document represents components of the legal health record. It is not the complete legal health record.[facility]
--- OUTSIDE RECORDS SUMMARY | 2025-01-25 13:45 | XMS_ITS | Encounter Summary ---
Author Organization [facility] Address [address] [facility] [address] [place] [address] Phone Care Team Providers Care Metal Patternmaker Apprentice Name Role Phone Dinesh Oakley MD Primary Care Provider [phone] Dinesh Oakley MD Unavailable [phone] Encounter Details Date Type Department Care Team (Latest Contact Info) Description 03/19/2017 Transcribe Orders [facility] Laboratory [address] [place] [address] Gildardo Zelaya MD [address] [place] [address] Uric acid nephrolithiasis (Primary Dx) Social History Tobacco Use Types Packs/Day Years [...] Description 07/15/2025 1:00 PM EDT Office Visit [facility] [address] [place] [address] Dinesh Oakley MD 22 [facility], [address] [place] [address] documented as of this encounter Results * PSA, free and total (03/19/2017 4:01 PM EST) PSA, TOTAL 1.1 <=3.5 ng/mL [facility] MED/[facility] [place] FREE PSA 0.6 ng/mL [facility] [place] FREE/TOT PSA RATIO SEE NOTE ratio [facility] MED/[facility] Comment: (NOTE) Ratio not calculated because clinical usefulness is not defined except in range of total PSA 4.0-10.0 ng/mL. ADDITIONAL INFORMATION The testing method is an electrochemiluminescence assay manufactured by [employer] and performed on the Modular or [employer]ia system. Values obtained with different assay methods or kits may be different and cannot be used interchangeably. Test results cannot be interpreted as absolute evidence for the presence or absence of malignant disease. Blood 03/19/2017 4:01 PM EST 03/19/2017 4:03 PM EST Gildardo Zelaya MD LAB BLOOD ORDERABL ES Final Result [facility] MED/[facility] [address] [place] [address] documented in this encounter Visit Diagnoses Diagnosis Uric acid nephrolithiasis- Primary documented in this encounter Additional Health Concerns Infection Onset Date Last Indicated Resolved Time CoV-Risk 12/26/2019 12/28/2019 01/09/2020 1:24 AM EDT CoV-Risk 09/10/2021 09/10/2021 09/21/2021 1:24 AM EDT documented as of this encounter Care Teams Metal Patternmaker Apprentice Relationship Specialty Start Date End Date Dinesh Oakley MD [address] [place] [address], [address] [place] [address] PCP - General 02/04/17 Dinesh Oakley MD [address] [place] [address], [address] [place] [address] Insurance Assigned Provider 06/14/1712/28/22 documented as of this encounter Additional Source Comments The information contained in this document represents components of the legal health record. It is not the complete legal health record.[facility]
--- OUTSIDE RECORDS SUMMARY | 2025-01-25 13:45 | XMS_ITS | Encounter Summary ---
Author Organization [facility] Address [address] [facility] [address] [place] [address] Phone Care Team Providers Care Solution Mixer Name Role Phone Dinesh Oakley MD Primary Care Provider [phone] Dinesh Oakley MD Unavailable [phone] Encounter Details Date Type Department Care Team (Late st Contact Info) Description 02/08/2017 Ancillary Orders Virtual Department [address] [place] [address] Gildardo Zelaya MD [address] [place] [address] Renal stones Social History Tobacco Use Types Packs/Day Years [...] Description 07/15/2025 1:00 PM EDT Office Visit [facility] [address] [place] [address] Dinesh Oakley MD 22 [facility], [address] [place] [address] documented as of this encounter Results * US Kidneys (03/19/2017 11:54 AM EST) Anatomical Region Laterality Modality Abdomen, Kidney Ultrasound 03/19/2017 1:16 PM EST Impressions 03/19/2017 1:17 PM EST 6 mm non-obstructing stone lower pole right kidney POS [id number] Narrative 03/19/2017 1:17 PM EST Compare ultrasound 02/08/2016. Both kidneys remain normal size and contour. Right 10.9 x 6.5 cm. Left 11.4 x 6.7 cm. In the lower pole of the right kidney there is an echogenic area with twinkle artifact measuring about 6 mm very likely representing a non-obstructing stone. No other stones are apparent in either kidney. Neither collecting system is dilated. No cystic or solid masses. No cortical scarring, signs of pyelonephritis or perinephric fluid collections. Procedure Note Travis Rosas MD - 03/19/2017 Compare ultrasound 02/08/2016. Both kidneys remain normal size and contour. Right 10.9 x 6.5 cm. Left 11.4 x 6.7 cm. In the lower pole of the right kidney there is an echogenic area with twinkle artifact measuring about 6 mm very likely representing anon-obstructing stone. No other stones are apparent in either kidney. Neither collecting system is dilated. No cystic or solid masses. No cortical scarring, signs of pyelonephritis or perinephric fluidcollections. IMPRESSION: 6 mm non-obstructing stone lower pole right kidney POS [id number] Gildardo Zelaya MD [facility] US RENAL Fi nal Result documented in this encounter Visit Diagnoses Diagnosis Renal stones Renal stones documented in this encounter Additional Health Concerns Infection Onset Date Last Indicated Resolved Time CoV-Risk 12/26/2019 12/28/2019 01/09/2020 1:24 AM EDT CoV-Risk 09/10/2021 09/10/2021 09/21/2021 1:24 AM EDT documented as of this encounter Care Teams Solution Mixer Relationship Specialty Start Date End Date Dinesh Oakley MD [address] [place] [address], [place] [phone] (Work) [email or web address] PCP - General 02/04/17 Dinesh Oakley MD [address] [place] [address], [address] [place] [address] [email or web address] Insurance Assigned Provider 06/14/1712/28/22 documented as of this encounter Additional Source Comments The information contained in this document represents components of the legal health record. It is not the complete legal health record.[facility]
--- OUTSIDE RECORDS SUMMARY | 2025-01-25 13:45 | XMS_ITS | Encounter Summary ---
Author Organization [facility] Address [address] [place] [address] Care Team Providers Care Shark Biologist Name Role Phone Unavailable Primary Care Provider Unavailabl e Reason for Visit * Reason Comments Med Refill Encounter Details Date Type Department Care Team (Late st Contact Info) Description 03/24/2024 Refill [facility] [address] [place] [address] Ritu Ramirez DDS [address] [place] [address] Social History Tobacco Use Types Packs/Day Years [...]
--- OUTSIDE RECORDS SUMMARY | 2025-01-25 13:45 | XMS_ITS | Encounter Summary ---
Author Organization [facility] Address [address] [facility] [address] [place] [address] Phone Care Team Providers Care Meat Products Demonstrator Name Role Phone Dinesh Oakley MD Primary Care Provider [phone] Dinesh Oakley MD Unavailable [phone] Encounter Details Date Type Department Care Team (Late st Contact Info) Description 05/31/2019 Ancillary Orders Virtual Department [address] [place] [address] Gildardo Zelaya MD [address] [place] [address] Calculus of kidney Social History Tobacco Use Types Packs/Day Years Used Date Smoking Tobacco: Never Smokeless Tobacco: Never Alcohol Use Standard Drinks/Week Comments Not Currently 0 (1 standard drink = 0.6 oz pur e alcohol) Child or Family Care Answer Date Record ed Do you have problems with on e of the following making it difficult for you to work, study, or receive health care? No 09/21/2018 Education Answer Date Recorded Are you interested in help w ith more adult education (for example, completing high school, GED, job training, learning the [place] language, technical skills, or developing parenting skills)? No 09/21/2018 Are you concerned about learning? Not on file 09/21/2018 Not on file 09/21/2018 Not on file 09/21/2018 Food Answer Date Recorded Within the past [...] appointments or from getting medications? 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 Not on file Not on file documented as of this encounter Plan of Treatment Upcoming Encounters Date Type Department Care Team (Late st Contact Info) Description 07/15/2025 1:00 PM EDT Office Visit [facility] [address] [place] [address] Dinesh Oakley MD [address] [place] [address], [address] [place] [address] documented as of this encounter Visit Diagnoses Diagnosis Calculus of kidney documented in this encounter Additional Health Concerns Infection Onset Date Last Indicated Resolved Time CoV-Risk 12/26/2019 12/28/2019 01/09/2020 1:24 AM EDT CoV-Risk 09/10/2021 09/10/2021 09/21/2021 1:24 AM EDT Assessment Noted Time PHQ-2 Depression Total Score: 0 09/22/19 19 3:19 PM EDT documented as of this encounter Care Teams Meat Products Demonstrator Relationship Specialty Start Date End Date Dinesh Oakley MD [address] [place] [address], [address] [place] [address] [email or web address] PCP - General 02/04/17 Dinesh Oakley MD [address] [place] [address], [address] [place] [address] Insurance Assigned Provider 2/24/18 9/ 9/23 documented as of this encounter Additional Source Comments The information contained in this document represents components of the legal health record. It is not the complete legal health record.[facility]
--- OUTSIDE RECORDS SUMMARY | 2025-01-25 13:45 | XMS_ITS | Encounter Summary ---
Author Organization [facility] Address [address] [place] [address] Care Team Providers Care Retail Helper Name Role Phone Unavailable Primary Care Provider Unavailabl e Reason for Visit * Reason Comments Med Refill Encounter Details Date Type Department Care Team (Late st Contact Info) Description 03/22/2024 Refill [facility] [address] [place] [address] Ritu Ramirez DDS [address] [place] [address] Social History Tobacco Use Types Packs/Day Years Used Date Smoking Tobacco: Never Assessed Sex and Gender Information Value Date Recorded Sex Assigned at Male 09/05/2022 10:33 AM EDT Legal Sex Male 5:36 PM EDT Gender Identity Male 09/05/2022 10:33 AM EDT Sexual Orientation Straight 09/05/2022 10 :33 AM EDT documented as of this encounter Plan of Treatment Not on file documented as of this encounter Visit Diagnoses Not on filedocumented in this encounter
--- OUTSIDE RECORDS SUMMARY | 2025-01-25 13:45 | XMS_ITS | Encounter Summary ---
Author Organization [facility] Address [address] [facility] [address] [place] [address] Phone Care Team Providers Care Bonderizer Name Role Phone Dinesh Oakley MD Primary Care Provider [phone] Dinesh Oakley MD Unavailable [phone] Encounter Details Date Type Department Care Team (Latest Contact Info) Description 06/11/2017 Transcribe Orders [facility] Phlebotomy [address] [place] [address] Gildardo Zelaya MD [address] [place] [address] Uric acid nephrolithiasis (Primary Dx) Social History Tobacco Use Types Packs/Day Years Used Date Smoking Tobacco: Never Smokeless Tobacco: Never Alcohol Use Standard Drinks/Week Comments Yes 0 (1 standard drink = 0.6 oz pur e alcohol) Sex and Gender Information Value Date Recorded Sex Assigned at Male 09/08/2018 7:54 PM EDT Legal Sex Male 9:51 PM EDT Gender Identity Male 09/08/2018 7:54 PM EDT Sexual Orientation Straight 09/08/2018 7: 54 PM EDT documented as of this encounter Plan of Treatment Upcoming Encounters Date Type Department Care Team (Late st Contact Info) Description 07/15/2025 1:00 PM EDT Office Visit [facility] [place] [facility] [address] [place] [address] Dinesh Oakley MD 22 [facility], [address] [place] [address] documented as of this encounter Results * Stone analysis (06/11/2017 7:00 AM EST) SOURCE Kidney [facility]R[address]ERT [address]STER DR 1ST CONSTITUENT 90% Calcium oxalate monohydrate [facility] ANTONE[facility]A LOMBARDO/ROBERT HESTER DR 2ND CONSTITUENT 10% Calcium phosphate (apatite) [facility]PATH SUPERIOR NICHOLS Comment: (NOTE) ADDITIONAL INFORMATION This test was developed and its performance characteristics determined by [facility] in a manner consistent with CLIA requirements. This test has not been cleared or approved by the U.S. Food and Drug Administration. 3RD CONSTITUENT Test component not applicable or not reported. [facility]/ROBERT VILLAVICENCIO, MAJOR Test component not applicable or not reported. [facility]/PATH SUPERIOR DR VILLAVICENCIO, MINOR Test component not applicable or not reported. [facility]PATH SUPERIOR DR AGULIERA, MAJOR Test component not applicable or not reported. [facility]/ROBERT AGUILERA, MINOR Test component not applicable or not reported. [facility]PATH SUPERIOR NICHOLS COMMENT Test component not applicable or not reported. [facility]PATH SUPERIOR NICHOLS Other (Passed Stone) 06/11/2017 7:00 AM EST 06/11/2017 4:26 PM EST us Gildardo Zelaya MD BODY FLUIDS AND [facility] ORDERABLES Final Result [facility]PATH SUPERIOR NICHOLS [address] [place] [address] documented in this encounter Visit Diagnoses Diagnosis Uric acid nephrolithiasis- Primary documented in this encounter Additional Health Concerns Infection Onset Date Last Indicated Resolved Time CoV-Risk 12/26/2019 12/28/2019 01/09/2020 1:24 AM EDT CoV-Risk 09/10/2021 09/10/2021 09/21/2021 1:24 AM EDT documented as of this encounter Care Teams Bonderizer Relationship Specialty Start Date End Date Dinesh Oakley MD [address] [place] [address], [address] [place] [address] [email or web address] PCP - General 02/04/17 Dinesh Oakley MD [address] [place] [address], [address] [place] [address] [email or web address] Insurance Assigned Provider 06/14/1712/28/22 documented as of this encounter Additional Source Comments The information contained in this document represents components of the legal health record. It is not the complete legal health record.[facility]
--- OUTSIDE RECORDS SUMMARY | 2025-01-25 13:45 | XMS_ITS | Encounter Summary ---
Author Organization [facility] Address [address] [facility] [address] [place] [address] Phone Care Team Providers Care Vacuum Pan Tender Name Role Phone Dinesh Oakley MD Primary Care Provider [phone] Dinesh Oakley MD Unavailable [phone] Encounter Details Date Type Department Care Team (Late st Contact Info) Description 05/25/2020 Procedure Pass [facility] Endoscopy Admitting Dept Virtual Department [address] [place] [address] Social History Tobacco Use Types Packs/Day Years [...] high school, GED, job training, learning the Argentine language, technical skills, or developing parenting skills)? [...] Description 07/15/2025 1:00 PM EDT Office Visit [facility] [address] [place] [address] [place] [address] Dinesh Oakley MD 22 [facility], [address] [place] [address] [email or web address] documented as of this encounter Visit Diagnoses Not on filedocumented in this encounter Additional Health Concerns Infection Onset Date Last Indicated Resolved Time CoV-Risk 09/10/2021 09/10/2021 09/21/2021 1:24 AM EDT Assessment Noted Time PHQ-2 Depression Total Score: 0 09/22/19 19 3:19 PM EDT documented as of this encounter Care Teams Vacuum Pan Tender Relationship Specialty Start Date End Date Dinesh Oakley MD [address] [place] [address], [address] [place] [address] [email or web address] PCP - General 02/04/17 Dinesh Oakley MD [address] [place] [address], [address] [place] [address] [email or web address] Insurance Assigned Provider 06/14/1712/28/22 documented as of this encounter Additional Source Comments The information contained in this document represents components of the legal health record. It is not the complete legal health record.[facility]
--- OUTSIDE RECORDS SUMMARY | 2025-01-25 13:45 | XMS_ITS | Encounter Summary ---
Author Organization [facility] Address 399 [facility] [address] [place] [address] Phone Care Team Providers Care Industrial Controller Name Role Phone Dinesh Oakley MD Primary Care Provider [phone] Dinesh Oakley MD Unavailable [phone] Encounter Details Date Type Department Care Team (Late st Contact Info) Description 12/08/2017 Ancillary Orders Virtual Department [address] [place] [address] Gildardo Zelaya MD [address] [place] [address] Renal stone Social History Tobacco Use Types Packs/Day [...] Description 07/15/2025 1:00 PM EDT Office Visit [facility] [address] [address] Dinesh Oakley MD 22 [facility], [address] [place] [address] documented as of this encounter Results * US Kidneys (08/03/2018 11:36 AM EDT) Anatomical Region Laterality Modality Abdomen, Kidney Ultrasound 08/03/2018 11:5 0 AM EDT Impressions 08/03/2018 11:51 AM EDT No current findings nephrolithiasis or hydronephrosis are noted. S/S: Follow-up previous renal calculi POS - [id number] Narrative 08/03/2018 11:51 AM EDT COMPARISON: Renal ultrasound 06/11/2017 FINDINGS: The right kidney measures 10.3 x 5.5 cm while the left kidney measures 10.8 x 5.5 cm. No nephrolithiasis or hydronephrosis is evident. No renal parenchymal mass lesion is seen. Procedure Note Ishaan Arnold MD - 08/03/2018 COMPARISON: Renal ultrasound 06/11/2017 FINDINGS: The right kidney measures 10.3 x 5.5 cm while the left kidney .8 x 5.5 cm. No nephrolithiasis or hydronephrosis is evident. No renalparenchymal mass lesion is seen. IMPRESSION: No current findings nephrolithiasis or hydronephrosis are noted. S/S: Follow-up previous renal calculi POS - [id number] Gildardo Zelaya MD [facility] [place] Result documented in this encounter Visit Diagnoses Diagnosis Renal stone Calculus of kidney Renal stone Calculus of kidney documented in this encounter Additional Health Concerns Infection Onset Date Last Indicated Resolved Time CoV-Risk 12/26/2019 12/28/2019 01/09/2020 1:24 AM EDT CoV-Risk 09/10/2021 09/10/2021 09/21/2021 1:24 AM EDT documented as of this encounter Care Teams Industrial Controller Relationship Specialty Start Date End Date Dinesh Oakley MD [address] [place] [address], [address] [place] [address] [email or web address] PCP - General 02/04/17 Dinesh Oakley MD [address] [place] [address], [address] [place] [address] [email or web address] Insurance Assigned Provider 06/14/1712/28/22 documented as of this encounter Additional Source Comments The information contained in this document represents components of the legal health record. It is not the complete legal health record.[facility]
--- OUTSIDE RECORDS SUMMARY | 2025-01-25 13:45 | XMS_ITS | Encounter Summary ---
Author Organization [employer] Address [address] [place] [address] Care Team Providers Care Workforce Development Assistant Name Role Phone Unavailable Primary Care Provider Unavailabl e Reason for Visit * Reason Comments Med Refill Encounter Details Date Type Department Care Team (Late st Contact Info) Description 03/22/2024 Refill Ul[facility] [address] [place] [address] Ritu Ramirez DDS [address] [place] [address] Social History Tobacco Use Types Packs/Day Years [...]
--- OUTSIDE RECORDS SUMMARY | 2025-01-25 13:46 | XMS_ITS | Encounter Summary ---
Author Organization [facility] Address [address] [facility] [address] [place] [address] Phone Care Team Providers Care Vault Worker Name Role Phone Dinesh Oakley MD Primary Care Provider [phone] Dinesh Oakley MD Unavailable [phone] Reason for Visit * Reason Onset Date Comments Tick Bite 07/24/2022 Encounter Details Date Type Department Care Team (Late st Contact Info) Description 07/24/2022 Nurse Triage [facility] [address] [place] [address] Dinesh Oakley MD 22 [facility], [address] [place] [address] [email or web address] Tick Bite Social History Tobacco Use Types Packs/Day Years [...] high school, GED, job training, learning the [place] language, technical skills, or developing parenting skills)? [...] on file documented as of this encounter Progress Notes * Dinesh Oakley MD - 07/24/2022 12:14 PM EDT Signed * Shireen Amanda RN - 07/24/2022 10:23 AM EDT Nurse Triage Encounter Note Reason for Triage Griffin Ferrer contacted office for Tick Bite Call Disposition Home Care Patient/caregiver understands and will follow disposition: No, Wishes To Speak With Pcp Patient/caregiver understands and will follow care advice: No, Wishes To Speak To Pcp Disposition Comments: Protocols used: Tick Wtif-[id number]-Hc Care Advice Given Care Advice Patient/Caregiver understands and will follow care advice?: No, wishes to speak to PCP HOME CARE: * You should be able to treat this at home. REASSURANCE AND EDUCATION - TICK BITE: * Most tick bites are harmless and can be treated at home. * The spread of disease by ticks is rare. * Here is some care advice that should help. ANTIBIOTIC OINTMENT: * Wash the bite area and your hands with soap and water after removing the tick. * Apply an fwbb-ugi-qhwyvvu antibiotic ointment to the bite once. EXPECTED COURSE: * Tick bites normally don't itch or hurt. That's why they often go unnoticed. * If the tick transferred a disease, a rash will usually occur. It will appear in the next 2 to 4 weeks. CALL BACK IF: * Fever or rash occur in the next 2 to 4 weeks * Bite begins to look infected * You become worse REASSURANCE AND EDUCATION - PREVENTING TICK BITES: * Prevention is important if you are outside in areas where ticks are common. * You can prevent tick bites by AVOIDING tick areas, wearing the right CLOTHES, CHECKING YOURSELF after outdoor activities, and USING TICK REPELLENT. * There are two types of tick and insect repellents: repellents FOR YOUR SKIN or repellents FOR YOUR CLOTHES. There are repellents that you can PUT ON YOUR SKIN. Repellents for your skin that containDEET, picaridin (icaridin), or lemon eucalyptus are effective in preventing tick and insect bites. Permethrin is an insect and tick repellent that you can PUT ON YOUR CLOTHES. * Here is some care advice that should help. TICK REPELLENTS FOR YOUR SKIN: * You can use an insect and tick repellent on skin that is not covered by clothes when you are outdoors. They protect you from tick bite and insect bites (such as mosquitoes). * Two repellents that are safe and work very well are DEET and PICARIDIN (ICARIDIN). You can buy them srac-lnb-lqahfpt at the drugstore or an outdoor sports store. Look for these names in the active ingredients on the can or bottle. * DEET is the most commonly used tick and insect repellent. * You can use DEET or picaridin safely if you are or . * People who do not want to use DEET or picaridin, can choose to use LEMON EUCALYPTUS (OIL OF LEMONEUCALYPTUS) insect repellent. You can buy it bndt-pby-kognofo at the drugstore or an outdoor sportsstore. Patient will call back with additional questions or if symptoms change or worsen Shireen Amanda RN Reason for Disposition and Assessment Reason for Disposition ??? Tick bite with no complications Answer Assessment - Initial Assessment Questions 1. TYPE of TICK: Is it a wood tick or a deer tick? (e.g., deer tick, wood tick; unsure) Unsure 2. SIZE of TICK: How big is the tick? (e.g., size of poppy seed, apple seed, watermelon seed; unsure) Note: [place] ticks can be the size of a poppy seed (nymph) or an apple seed (adult). Unsure 3. ENGORGED: Did the tick look flat or engorged (full, swollen)? (e.g., flat, engorged; unsure) Unsure 4. LOCATION: Where is the tick bite located? R leg, back of knee 5. ONSET: How long do you think the tick was attached before you removed it? (e.g., 5 hours, 2 days) wasn't on very long, but it hurts 6. APPEARANCE of BITE or RASH: What does the site look like? No ring but some redness to area 7. : Is there any chance you are ? When was your last menstrual period? Protocols used: TICK [id number] * Ny Carlisle - 07/24/2022 10:08 AM EDT Pt called stating he was bitten by a tick yesterday while working in the [employer]. Pt stated that he pulled it off but would like a prescription. Please contact and advise. documented in this encounter Plan of Treatment Upcoming Encounters Date Type Department Care Team (Late st Contact Info) Description 07/15/2025 1:00 PM EDT Office Visit [facility] [place] [facility] [address] [place] [address] [place] [address] Dinesh Oakley MD 22 [facility], [address] [place] [address] [email or web address] documented as of this encounter Visit Diagnoses Diagnosis Tick bite- Primary Other, multiple, and unspecified sites, insect bite, nonvenomous, without mention of infection documented in this encounter Additional Health Concerns Assessment Noted Time PHQ-2 Depression Total Score: 0 06/29/19 11:07 AM EST documented as of this encounter Care Teams Vault Worker Relationship Specialty Start Date End Date Dinesh Oakley MD [address] [place] [address], [address] [place] [address] [email or web address] PCP - General 02/04/17 Dinesh Oakley MD [address] [place] [address], [address] [place] [address] Insurance Assigned Provider 06/14/1712/28/22 documented as of this encounter Additional Source Comments The information contained in this document represents components of the legal health record. It is not the complete legal health record.[facility]
--- OUTSIDE RECORDS SUMMARY | 2025-01-25 13:46 | XMS_ITS | Encounter Summary ---
Author Organization [employer] Address 75 [facility] 7 [place] [address] Care Team Providers Care Fireproof Door Assembler Name Role Phone Unavailable Primary Care Provider [...]
--- OUTSIDE RECORDS SUMMARY | 2025-01-25 13:46 | XMS_ITS | Encounter Summary ---
Author Organization [facility] Address [address] [facility] [address] [place] [address] Phone Care Team Providers Care Library Aide Name Role Phone Dinesh Oakley MD Primary Care Provider [phone]- [phone] Reason for Visit * Reason Onset Date Comments Results 12/30/2022 Encounter Details Date Type Department Care Team (Late st Contact Info) Description 12/30/2022 Telephone [employer] [facility] Medicine [address] [place] [address] Pily Lemus RN [email or web address] Results Social History Tobacco Use Types Packs/Day Years [...] with a working camera? 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 Pt verbalizes understanding, and does not want to proceed with a referral at this time. He states that he has an appointment coming up for and injection and states that he wants to hold off on seeing orthopedics for a few more years. No other questions or concerns at this time. Routed to PCP * Navi Garcia RN - 12/30/2022 2:36 PM EDT Griffin leaves VM returning call from nursing, requests call back. * Pily Lemus RN - 12/30/2022 1:40 PM EDT Images from the original note were not included. This RN attempted to contact patient. No answer. Unable to leave VM at both numbers provided. Referral pended documented in this encounter Plan of Treatment Upcoming Encounters Date Type Department Care Team (Late st Contact Info) Description 07/15/2025 1:00 PM EDT Office Visit [address] [place] [address] Dinesh Oakley MD [address] [place] [address], [address] [place] [address] [email or web address] documented as of this encounter Visit Diagnoses Diagnosis Primary osteoarthritis of both hips- Primary documented in this encounter Additional Health Concerns Assessment Noted Time PHQ-2 Depression Total Score: 0 06/29/19 21 11:07 AM EST documented as of this encounter Care Teams Library Aide Relationship Specialty Start Date End Date Dinesh Oakley MD [address] [place] [address], [address] [place] [address] [email or web address] PCP - General 02/04/17 documented as of this encounter Additional Source Comments The information contained in this document represents components of the legal health record. It is not the complete legal health record.[facility]
--- OUTSIDE RECORDS SUMMARY | 2025-01-25 13:46 | XMS_ITS | Encounter Summary ---
Author Organization [employer] Address 75 [facility] 7 [place] [address] Care Team Providers Care Business Applications Manager Name Role Phone Unavailable Primary Care Provider [...]
== END 2025-01-25 12:11 | disposition home or self-care (01) ==
LOC: HO.HUSH 11:05
PROVIDERS: PCP Family Medicine; Visit Provider Urology
DX: N32.0 Bladder-neck obstruction (principal)
CPT/HCPCS: 99214

== ENCOUNTER → 2025-01-25 11:04 | Outpatient (BNVA) | payer BC, MEDICAID, SELFPAY | PROVIDERS: PCP Family Medicine; Visit Provider Urology | DX: N32.0 Bladder-neck obstruction (principal) | CPT/HCPCS: 51798 ==

== ENCOUNTER 2025-03-14 09:57 | Day surgery (SDC) | payer MEDICARE, MEDICAID, SELFPAY ==
--- OUTSIDE RECORDS SUMMARY | 2025-02-28 17:14 | XMS_ITS | Encounter Summary ---
Author Organization [employer] Address [address] [place] [address] Care Team Providers Care Internal Medicine Hospitalist Name Role Phone Unavailable Primary Care Provider [...] Encounters Date Type Department Care Team (Late Contact Info) Description 07/27/2025 12:00 PM EDT Office Visit [place] [facility] DENTAL [address] [place] [address] Madina Lazaro [address] [place] [address] documented as of this encounter Visit Diagnoses Not on filedocumented in this encounter
--- OUTSIDE RECORDS SUMMARY | 2025-02-28 17:14 | XMS_ITS | Encounter Summary ---
Author Organization [facility] Address [address] [facility] [address] [place] [address] Phone Care Team Providers Care Foreign Languages Department Chair Name Role Phone Dinesh Oakley MD Primary Care Provider [phone]- [phone] Dinesh Oakley MD Unavailable [phone] Encounter Details Date Type Department Care Team (Late st Contact Info) Description 02/08/2017 Ancillary Orders Virtual Department [address] [place] [address] Gildardo Zelaya MD [address] [place] [address] Renal stones Social History Tobacco Use Types [...] Description 07/15/2025 1:00 PM EDT Office Visit [facility] [place] [facility] [address] [place] [address] Dinesh Oakley MD [address] [facility], [address] [place] [address] documented as of this encounter Results * [...] right kidney POS [id number] Gildardo Zelaya MD [facility] Result documented in this encounter Visit Diagnoses Diagnosis Renal stones Renal stones documented in this encounter Additional Health Concerns Infection Onset Date Last Indicated Resolved Time CoV-Risk 12/26/2019 12/28/2019 01/09/2020 1:2 4 AM EDT CoV-Risk 09/10/2021 09/10/2021 09/21/2021 1:24 AM EDT documented as of this encounter Care Teams Foreign Languages Department Chair Relationship Specialty Start Date End Date Dinesh Oakley MD [address] [place] [address], [address] [place] [address] [email or web address] PCP - General 02/04/17 Dinesh Oakley MD [address] [place] [address], [address] [place], [place] [id number] [email or web address] Insurance Assigned Provider 06/14/1712/28/22 documented as of this encounter Additional Source Comments The information contained in this document represents components of the legal health record. It is not the complete legal health record.[facility]
--- OUTSIDE RECORDS SUMMARY | 2025-02-28 17:14 | XMS_ITS | Encounter Summary ---
Author Organization [facility] Address [address] [facility] [address] [place] [address] Phone Care Team Providers Care Visor Installer Name Role Phone Dinesh Oakley MD Primary Care Provider [phone] Encounter Details Date Type Department Care Team (Late st Contact Info) Description 07/26/2024 Procedure Pass [facility], Ct Scan - [address] [address] Social History Tobacco Use Types Packs/Day Years [...] on file documented as of this encounter Functional Status * Calculated C-SSRS Risk Score (Lifetime/Recent) Answer Date of Assessment Author No Risk Indicated 07/26/2024 1:21 AM EDT Lucy Hopkins RN * Lamar Suicide Severity Rating Scale (Screener/Recent Self-Report) Question Answer Date of Assessment Author 1. Wish to be (Past 1 Month) No 07/26/2024 1:21 AM EDT Lucy Freeman RN 2. Non-Specific Active Suicidal Thoughts (Past 1 Month) No 07/26/2024 1:21 AM EDT Lucy Freeman RN 6. Suicidal Behavior (Lifetime) No 07/26/2024 1:21 AM EDT Lucy Freeman RN documented as of this encounter Plan of Treatment Upcoming Encounters Date Type Department Care Team (Late st Contact Info) Description 07/15/2025 1:00 PM EDT Office Visit [address] [place] [address] Dinesh Oakley MD [address] [facility], [address] [place] [address] Key [email or web address] documented as of this encounter Visit Diagnoses Not on filedocumented in this encounter Additional Health Concerns Assessment Noted Time PHQ-2 Depression Total Score: 2 07/15/19 25 1:34 PM EDT documented as of this encounter Care Teams Visor Installer Relationship Specialty Start Date End Date Dinesh Oakley MD [address] [place] [address], [address] [place] [address] [email or web address] PCP - General 02/04/17 documented as of this encounter Additional Source Comments The information contained in this document represents components of the legal health record. It is not the complete legal health record.[facility]
--- OUTSIDE RECORDS SUMMARY | 2025-02-28 17:14 | XMS_ITS | Encounter Summary ---
Author Organization [facility] Address [address] [facility] [address] [place] [address] Phone Care Team Providers Care Call Specialist Name Role Phone Dinesh Oakley MD Primary Care Provider [phone] Dinesh Oakley MD Unavailable [phone] Encounter Details Date Type Department Care Team (Latest Contact Info) Description 03/19/2017 Transcribe Orders [facility] Phleb Main [address] [place] [address] Gildardo Zelaya MD [address] [place] [address] Uric acid nephrolithiasis (Primary Dx) Social History [...] Description 07/15/2025 1:00 PM EDT Office Visit [facility] Medicine [address] [place] [address] Dinesh Oakley MD 22 [facility], [address] [place], [place] [id number] [email or web address] documented as of this encounter Results * PSA, free and total (03/19/2017 4:01 PM EST) PSA, TOTAL 1.1 <=3.5 ng/mL [facility] FREE PSA 0.6 ng/mL [facility] FREE/TOT PSA RATIO SEE NOTE ratio [facility] Comment: (NOTE) Ratio not calculated because clinical usefulness is not defined except in range of total PSA 4.0-10.0 ng/mL. ADDITIONAL INFORMATION The testing method is an electrochemiluminescence assay manufactured by [employer] and performed on the Modular or Catia system. Values obtained with different assay methods or kits may be different and cannot be used interchangeably. Test results cannot be interpreted as absolute evidence for the presence or absence of malignant disease. Blood 03/19/2017 4:01 PM EST 03/19/2017 4:03 PM EST Gildardo Zelaya MD LAB BLOOD BKR STEVEN W[employer] Final Result [facility] [address] [place] [address] documented in this encounter Visit Diagnoses Diagnosis Uric acid nephrolithiasis- Primary documented in this encounter Additional Health Concerns Infection Onset Date Last Indicated Resolved Time CoV-Risk 12/26/2019 12/28/2019 01/09/2020 1:24 AM EDT CoV-Risk 09/10/2021 09/10/2021 09/21/2021 1:24 AM EDT documented as of this encounter Care Teams Call Specialist Relationship Specialty Start Date End Date Dinesh Oakley MD [address] [place] [address], [address] [place] [address] PCP - General 02/04/17 Dinesh Oakley MD [address] [place] [address], [address] [place] [address] Insurance Assigned Provider 06/14/1712/28/22 documented as of this encounter Additional Source Comments The information contained in this document represents components of the legal health record. It is not the complete legal health record.[facility]
--- OUTSIDE RECORDS SUMMARY | 2025-02-28 17:14 | XMS_ITS | Encounter Summary ---
Author Organization [facility] Address [address] [facility] [address] [place] [address] Phone Care Team Providers Care Senior Health Educator Name Role Phone Dinesh Oakley MD Primary Care Provider [phone] Dinesh Oakley MD Unavailable [phone] Encounter Details Date Type Department Care Team (Latest Contact Info) Description 06/11/2017 Transcribe Orders [facility] Phlebotomy [address] [place] [address] Gildardo Zelaya MD [address] [place] [address] Uric acid nephrolithiasis (Primary Dx) Social History [...] Description 07/15/2025 1:00 PM EDT Office Visit [facility] [place] [facility] [address] [place] [address] Dinesh Oakley MD [address] [facility], [address] [place] [address] documented as of this encounter Results * Stone analysis (06/11/2017 7:00 AM EST) SOURCE Kidney [facility] ANTONELLA LOM[facility]ARDO/ROBERT HESTER DR 1ST CONSTITUENT 90% Calcium oxalate monohydrate [facility] ANTONELLA LOMBARDO/ROBERT HESTER DR 2ND CONSTITUENT 10% Calcium phosphate (apatite) [facility]/PATH SUPERIOR NICHOLS Comment: (NOTE) ADDITIONAL INFORMATION This test was developed and its performance characteristics determined by [facility] in a manner consistent with CLIA requirements. This test has not been cleared or approved by the U.S. Food and Drug Administration. 3RD CONSTITUENT Test component not applicable or not reported. [facility]UPO/ROBERT VILLAVICENCIO, MAJOR Test component not applicable or not reported. [facility]/PATH SUPER[address] DR VILLAVICENCIO, MINOR Test component not applicable or not reported. [facility]/PATH SUPERIOR DR AGUILERA, MAJOR Test component not applicable or not reported. [facility] GRUPO/ROBERT AGUILERA, MINOR Test component not applicable or not reported. [facility] N[facility] COMMENT Test component not applicable or not reported. [facility] GRUPO/PATH SUPERIOR NICHOLS Other (Passed Stone) 06/11/2017 7:00 AM EST 06/11/2017 4:26 PM EST us Gildardo Zelaya MD BODY FLUIDS AND ST ISAIAH ORDERABLES Final Result [facility] [address] [place] [address] documented in this encounter Visit Diagnoses Diagnosis Uric acid nephrolithiasis- Primary documented in this encounter Additional Health Concerns Infection Onset Date Last Indicated Resolved Time CoV-Risk 12/26/2019 12/28/2019 01/09/2020 1:24 AM EDT CoV-Risk 09/10/2021 09/10/2021 09/21/2021 1:24 AM EDT documented as of this encounter Care Teams Senior Health Educator Relationship Specialty Start Date End Date Dinesh Oakley MD [address] [place] [address], [address] [place] [address] [email or web address] PCP - General 02/04/17 Dinesh Oakley MD [address] [place] [address], [address] [place] [address] [email or web address] Insurance Assigned Provider 06/14/1712/28/22 documented as of this encounter Additional Source Comments The information contained in this document represents components of the legal health record. It is not the complete legal health record.[facility]
--- OUTSIDE RECORDS SUMMARY | 2025-02-28 17:14 | XMS_ITS | Clinical Summary ---
Author Organization [employer] Address [address] [facility] 7 [place] [address] Care Team Providers Care Hot Baller Name Role Phone Unavailable Primary Care Provider [...] Care Team (Late st Contact Info) Description 07/27/2025 12:00 PM EDT Office Visit [facility] D[facility] [address] [place] [address] Madina Lazaro [address] [place] [address] Health Maintenance Due Date Last Done Comments CT Colonography 1958 Colonoscopy 1958 Colorectal Cancer Screening 1958 Depression Screening 1958 FIT DNA/Cologuard 1958 FIT 1958 FOBT 1958 Lipid Panel 1958 SDOH Screening 1958 Sigmoidoscopy 1958 Alcohol/Substance Use Screening 1970 Tobacco Screening 1970 Hepatitis C Screening 1976 Pneumococcal Vaccine: 50+ Years (1 of 1 - PCV) 2008 Zoster Vaccines (1 of 2) 2008 COVID-19 Vaccine ( season) 2024 Influenza Vaccine (#1) 2024 Dental [...] Relevant to Health Maintenance Insurance DENTAL - BCBS OF ID DENTAL - HSN FULL (MEDICAID)
--- OUTSIDE RECORDS SUMMARY | 2025-02-28 17:14 | XMS_ITS | Encounter Summary ---
Author Organization [facility] Address [address] [facility] [address] [place] [address] Phone Care Team Providers Care Fine Grader Name Role Phone Dinesh Oakley MD Primary Care Provider [phone] Dinesh Oakley MD Unavailable [phone] Encounter Details Date Type Department Care Team (Late st Contact Info) Description 05/31/2019 Ancillary Orders Virtual Department [address] [place] [address] Gildardo Zelaya MD [address] [place] [address] Calculus of kidney Social History Tobacco Use [...] high school, GED, job training, learning the [place] language, technical skills, or developing parenting skills)? [...] Description 07/15/2025 1:00 PM EDT Office Visit [facility] Medicine [address] [place] [address] Dinesh Oakley MD [address] [place] [address], [address] [place] [address] [email or web address] documented as of this encounter Visit Diagnoses Diagnosis Calculus of kidney documented in this encounter Additional Health Concerns Infection Onset Date Last Indicated Resolved Time CoV-Risk 12/26/2019 12/28/2019 01/09/2020 1:24 AM EDT CoV-Risk 09/10/2021 09/10/2021 09/21/2021 1:24 AM EDT Assessment Noted Time PHQ-2 Depression Total Score: 0 09/22/19 19 3:19 PM EDT documented as of this encounter Care Teams Fine Grader Relationship Specialty Start Date End Date Dinesh Oakley MD [address] [place] [address], [address] [place] [address] PCP - General 02/04/17 Dinesh Oakley MD [address] [place] [address], [address] [place] [address] Insurance Assigned Provider 2/24/18 9/ 9/23 documented as of this encounter Additional Source Comments The information contained in this document represents components of the legal health record. It is not the complete legal health record.[facility]
--- OUTSIDE RECORDS SUMMARY | 2025-02-28 17:14 | XMS_ITS | Encounter Summary ---
Author Organization [facility] Address [address] [facility] [address] [place] [address] Phone Care Team Providers Care Seed Yeast Operator Name Role Phone Dinesh Oakley MD Primary Care Provider [phone] Reason for Visit * Reason Onset Date Comments Results 12/30/2022 Encounter Details Date Type Department Care Team (Late st Contact Info) Description 12/30/2022 Telephone [facility] Medicine [address] [place] [address] Pily Lemus RN [email or web address] Results Social History Tobacco Use Types Packs/Day [...] Description 07/15/2025 1:00 PM EDT Office Visit [address] [place] [address] Dinesh Oakley MD [address] [place] [address], [address] [place] [address] [email or web address] documented as of this encounter Visit Diagnoses Diagnosis Primary osteoarthritis of both hips- Primary documented in this encounter Additional Health Concerns Assessment Noted Time PHQ-2 Depression Total Score: 0 06/29/19 21 11:07 AM EST documented as of this encounter Care Teams Seed Yeast Operator Relationship Specialty Start Date End Date Dinesh Oakley MD [address] [place] [address], [address] [place] [address] [email or web address] PCP - General 02/04/17 documented as of this encounter Additional Source Comments The information contained in this document represents components of the legal health record. It is not the complete legal health record.[facility]
--- OUTSIDE RECORDS SUMMARY | 2025-02-28 17:14 | XMS_ITS | Encounter Summary ---
Author Organization [employer] Address 75 [facility] 7 [place] [address] Care Team Providers Care Sparmaker Name Role Phone Unavailable Primary Care Provider [...] Description 07/27/2025 12:00 PM EDT Office Visit [place] [facility] D[facility] [address] [place] [address] Madina Lazaro [address] [place] [address] documented as of this encounter Visit Diagnoses Not on filedocumented in this encounter
--- OUTSIDE RECORDS SUMMARY | 2025-02-28 17:14 | XMS_ITS | Encounter Summary ---
Author Organization [facility] Address [address] [facility] [address] [place] [address] Phone Care Team Providers Care Room Server Name Role Phone Dinesh Oakley MD Primary Care Provider [phone] Dinesh Oakley MD Unavailable [phone] Encounter Details Date Type Department Care Team (Late st Contact Info) Description 05/29/2017 Ancillary Orders [facility] External Provider Virtual Department [address] [place] [address] Gildardo Zelaya MD [address] [place] [address] Kidney stone Social History Tobacco Use Types [...] Description 07/15/2025 1:00 PM EDT Office Visit [facility] [address] [place] [address] [place] [address] Dinesh Oakley MD 22 [facility], [address] [place] [address] [email or web address] documented as of this encounter Results * [...] documented as of this encounter Care Teams Room Server Relationship Specialty Start Date End Date Dinesh Oakley MD [address] [place] [address], [address] [place] [address] PCP - General 02/04/17 Dinesh Oakley MD [address] [place] [address], [address] [place] [address] [email or web address] Insurance Assigned Provider 06/14/1712/28/22 documented as of this encounter Additional Source Comments The information contained in this document represents components of the legal health record. It is not the complete legal health record.[facility]
--- OUTSIDE RECORDS SUMMARY | 2025-02-28 17:14 | XMS_ITS | Encounter Summary ---
Author Organization [facility] Address [address] [place] [address] Care Team Providers Care Screening Representative Name Role Phone Unavailable Primary Care Provider Unavailabl e Reason for Visit * Reason Comments Med Refill Encounter Details Date Type Department Care Team (Late st Contact Info) Description 03/22/2024 Refill [facility] DENTAL [address] [place] [address] Ritu Ramirez DDS [address] [place] [address] Social History Tobacco Use Types Packs/Day Years [...] Description 07/27/2025 12:00 PM EDT Office Visit [facility] DENTAL [address] [place] [address] Madina Lazaro [address] [place] [address] documented as of this encounter Visit Diagnoses Not on filedocumented in this encounter
--- OUTSIDE RECORDS SUMMARY | 2025-02-28 17:14 | XMS_ITS | Encounter Summary ---
Author Organization [employer] Address [address] [place] [address] Care Team Providers Care Delivery Specialist Name Role Phone Unavailable Primary Care Provider Unavailabl e Reason for Visit * Reason Comments Med Refill Encounter Details Date Type Department Care Team (Late st Contact Info) Description 03/22/2024 Refill [facility] DENTAL [address] [place] [address] iRtu Ramirez DDS [address] [place] [address] Social History Tobacco Use Types Packs/Day Years [...] Description 07/27/2025 12:00 PM EDT Office Visit [facility] DENTAL [address] [place] [address] Madina Lazaro [address] [place] [address] documented as of this encounter Visit Diagnoses Not on filedocumented in this encounter
--- OUTSIDE RECORDS SUMMARY | 2025-02-28 17:14 | XMS_ITS | Encounter Summary ---
Author Organization [facility] Address [address] [facility] [address] [place] [address] Phone Care Team Providers Care Technical Programs Manager Name Role Phone Dinesh Oakley MD Primary Care Provider [phone] Dinesh Oakley MD Unavailable [phone] Reason for Visit * Reason Onset Date Comments Tick Bite 07/24/2022 Encounter Details Date Type Department Care Team (Late st Contact Info) Description 07/24/2022 Nurse Triage [facility] Medicine [address] [place] [address] Dinesh Oakley MD [address] [facility] [place] [address] [email or web address] Tick Bite Social History Tobacco Use Types [...] high school, GED, job training, learning the [place] language, technical skills, or developing parenting skills)? [...] To Pcp Disposition Comments: Protocols used: Tick Gkmf-Msmxf-Wl Care Advice Given Care Advice Patient/Caregiver understands [...] after removing the tick. * Apply an fjhn-nzh-dsgkopu antibiotic ointment to the bite once. EXPECTED [...] and PICARIDIN (ICARIDIN). You can buy them brmd-gxw-oxuxbfz at the drugstore or an outdoor sports [...] LEMONEUCALYPTUS) insect repellent. You can buy it pqbz-bvs-anekrpu at the drugstore or an outdoor sportsstore. [...] seed, apple seed, watermelon seed; unsure) Note: [place] ticks can be the size of a [...] your last menstrual period? Protocols used: TICK BNAU-QWMAE-UY * [place] - 07/24/2022 10:08 AM EDT Pt called stating he was bitten by a tick yesterday while working in the [employer]. Pt stated that he pulled it off but would like a prescription. Please contact and advise. documented in this encounter Plan of Treatment Upcoming Encounters Date Type Department Care Team (Late st Contact Info) Description 07/15/2025 1:00 PM EDT Office Visit [facility] [address] [place] [address] [place] [address] Dinesh Oakley MD [address] [facility] [place] [address] [email or web address] documented as of this encounter Visit Diagnoses Diagnosis Tick bite- Primary Other, multiple, and unspecified sites, insect bite, nonvenomous, without mention of infection documented in this encounter Additional Health Concerns Assessment Noted Time PHQ-2 Depression Total Score: 0 06/29/19 11:07 AM EST documented as of this encounter Care Teams Technical Programs Manager Relationship Specialty Start Date End Date Dinesh Oakley MD [address] [place] [address], [address] [place] [address] [email or web address] PCP - General 02/04/17 Dinesh Oakley MD [address] [place] [address], [address] [place] [address] Insurance Assigned Provider 06/14/1712/28/22 documented as of this encounter Additional Source Comments The information contained in this document represents components of the legal health record. It is not the complete legal health record.[facility]
--- OUTSIDE RECORDS SUMMARY | 2025-02-28 17:14 | XMS_ITS | Encounter Summary ---
Author Organization [facility] Address [address] [place] [address] [place] [address] Care Team Providers Care Correction Officer Reformatory Name Role Phone Unavailable Primary Care Provider Unavailabl e Reason for Visit * Reason Comments Med Refill Encounter Details Date Type Department Care Team (Late st Contact Info) Description 03/24/2024 Refill [facility] [address] [place] [address] Ritu Ramirez DDS [address] [place] [address] Social History Tobacco Use Types Packs/Day Years [...] Description 07/27/2025 12:00 PM EDT Office Visit [facility] [address] [place] [address] Madina Lazaro [address] [place] [address] documented as of this encounter Visit Diagnoses Not on filedocumented in this encounter
--- OUTSIDE RECORDS SUMMARY | 2025-02-28 17:14 | XMS_ITS | Clinical Summary ---
Author Organization [facility] Address [address] [place] [address] Phone Care Team Providers Care It Admin Name Role Phone Dinesh Oakley MD Primary Care Provider [phone] Allergies No known active allergies Medications chlorhexidine [...] Department Care Team Description 12/08/2024 Orders Only [facility] [address] [place] [address] Provider, MD Joaquín from Last 3 Months Immunizations Immunization Administration [...] 1:00 PM EDT Office Visit [facility] [address] [place] [address] [place] [address] Dinesh Oakley MD [address] [facility] [place] [address] Health Maintenance Due Date Last Done Comments COLOGUARD 2003 FIT TEST 2003 FOBT 2003 SIGMOIDOSCOPY 2003 VIRTUAL COLONOSCOPY 2003 INFLUENZA VACCINE (#1) 2024 COVID-19 VACCINE ( - 2024- season) 2024 PNEUMOCOCCAL VACCINES (50+ years) (1 [...] patient's age to complete this topic IPV VACCINES Aged Out No longer eligi ble [...] US Imaging??Report Only (12/06/2024 3:59 PM EDT) us Historical Provider MD MATTHEWS US OP Edited Re sult - Final * (ABNORMAL) Lipid panel (07/15/2024 10:34 AM EDT) HDL 38 mg/dL Comment: Interpretation <40 mg/dL: Low HDL cholesterol (major risk factor for CHD) Greater than or equal to 60 mg/dL: High HDL cholesterol ( negative risk factor for CHD) HDL - cholesterol is affected by a number of factors, e.g. smoking, excerise, hormones, sex and age. CHOLESTEROL 195 0 - 240 mg/dL TRIGLYCERIDES 114 30 - 160 mg/dL LDL 134(H) 50 - 129 mg/dL Comment: LDL levels in terms of risk for coronary heart disease: <100 mg/dL: Optimal 100-129 mg/dL: Near or above optimal 130-159 mg/dL: Borderline high 160-189 mg/dL: High >190 mg/dL: Very High CARDIAC RISK RATIO 5.1(H) 3.4 - 5.0 C [facility] Blood 07/15/2024 10:3 4 AM EDT 07/15/2024 10:37 AM EDT Dinesh Oakley MD LAB BLOOD BKR ORDERABLES F inal Result [address] [address] * ENDOSCOPY, COLON (05/25/2020 11:35 AM EST) Narrative Transcriptions Caden Parrish MD - 05/25/2020 11:35 AM EST Patient Name: Griffin Ferrer Attending MD:: CADEN PARRISH MD Procedure Date: 05/25/2020 11:35 AM Date of : 1960 Age: 60 Admit Type: Outpatient Gender: Male Room: [facility] Referring MD: DINESH OAKLEY MD Exam Type: [...] monitored continuously. The Olympus adult variable colonoscope [id number] #7was introduced through the anus and advanced [...] 11:35 AM Procedure Code(s): --- Professional --- 89012, Colonoscopy, flexible; with removal of tumor(s), polyp(s), or other lesion(s) by snare technique --- Technical --- 03477, Colonoscopy, flexible; with removal of tumor(s), polyp(s), or other lesion(s) by snare technique CPT copyright 2018 [employer]. All rights reserved. The codes documented in this report are preliminary and upon bookkeeping service sales agent reviewmay be revised to meet current compliance requirements. Procedure Date: 05/25/2020 11:35:[address] [place] [address] [id number] Dinesh Oakley MD GI PROCEDURE ORDERABLES Ed ited Result - Final * Hepatitis C antibody, qualitative (09/23/2018 1:11 PM EDT) HCV Negative Negative Comment: This is a screening test and should be confirmed with molecular testing Blood 09/23/2018 1:11 PM EDT 09/23/2018 1:14 PM EDT Dinesh Oakley MD LAB BLOOD BKR ORDERABLES F inal Result [address] [place] [address] from Last 3 Months or Most Recently Relevant to Health Maintenance Insurance [facility] MEDICARE PPO BLUE REPLACEMENT [facility] MEDICARE PART A & B [facility] MEDICARE PPO BLUE REPLACEMENT [address] [place], [place] [id number] MEDICARE PART A & B [place] BL[place] [facility] [place] BLUE REPLACEMENT [facility] MEDICARE PART A & B [facility] MEDICARE PPO BLUE REPLACEMENT [facility] MEDICARE PART A & B [facility] MEDICARE PPO [facility]UE RE[facility] & B Care Teams It Admin Relationship Specialty Start Date End Date Dinesh Oakley MD [address] [place] [address], [address] [place] [address] PCP - General 02/04/17 Additional Source Comments The information contained in this document represents components of the legal health record. It is not the complete legal health record.[facility]
--- OUTSIDE RECORDS SUMMARY | 2025-02-28 17:14 | XMS_ITS | Encounter Summary ---
Author Organization [facility] Address [address] [facility] [address] [place] [address] Phone Care Team Providers Care Electric Power Line Examiner Name Role Phone Dinesh Oakley MD Primary Care Provider [phone] Dinesh Oakley MD Unavailable [phone] Encounter Details Date Type Department Care Team (Late st Contact Info) Description 12/08/2017 Ancillary Orders Virtual Department [address] [place] [address] Gildardo Zelaya MD [address] [place] [address] Renal stone Social History Tobacco Use Types [...] Description 07/15/2025 1:00 PM EDT Office Visit [facility] [address] [address] Dinesh Oakley MD [address] [facility] [place] [address] documented as of this encounter Results * [...] x 5.5 cm while the left kidney [id number] x 5.5 cm. No nephrolithiasis or hydronephrosis is evident. No renalparenchymal mass lesion is seen. IMPRESSION: No current findings nephrolithiasis or hydronephrosis are noted. S/S: Follow-up previous renal calculi POS - [id number] Gildardo Zelaya MD [facility] US RENAL Fi nal Result documented in this encounter Visit Diagnoses Diagnosis Renal stone Calculus of kidney Renal stone Calculus of kidney documented in this encounter Additional Health Concerns Infection Onset Date Last Indicated Resolved Time CoV-Risk 12/26/2019 12/28/2019 01/09/2020 1:24 AM EDT CoV-Risk 09/10/2021 09/10/2021 09/21/2021 1:24 AM EDT documented as of this encounter Care Teams Electric Power Line Examiner Relationship Specialty Start Date End Date Dinesh Oakley MD [address] [place] [address], [address] [place] [address] PCP - General 02/04/17 Dinesh Oakley MD [address] [place] [address], [address] [place] [address] [email or web address] Insurance Assigned Provider 06/14/1712/28/22 documented as of this encounter Additional Source Comments The information contained in this document represents components of the legal health record. It is not the complete legal health record.[facility]
--- OUTSIDE RECORDS SUMMARY | 2025-02-28 17:14 | XMS_ITS | Encounter Summary ---
Author Organization [facility] Address [address] [facility] [address] [place] [address] Phone Care Team Providers Care Brand Strategist Name Role Phone Dinesh Oakley MD Primary Care Provider [phone] Dinesh Oakley MD Unavailable [phone] Encounter Details Date Type Department Care Team (Late st Contact Info) Description 05/25/2020 Procedure Pass [facility] Endoscopy Admitting Dept Virtual Department [address] [place] [address] Social History Tobacco Use Types Packs/Day Years [...] high school, GED, job training, learning the Malagasy language, technical skills, or developing parenting skills)? [...] Description 07/15/2025 1:00 PM EDT Office Visit [facility] [address] [place] [address] [place] [address] Dinesh Oakley MD [address] [facility] [place] [address] [email or web address] documented as of this encounter Visit Diagnoses Not on filedocumented in this encounter Additional Health Concerns Infection Onset Date Last Indicated Resolved Time CoV-Risk 09/10/2021 09/10/2021 09/21/2021 1:24 AM EDT Assessment Noted Time PHQ-2 Depression Total Score: 0 09/22/19 19 3:19 PM EDT documented as of this encounter Care Teams Brand Strategist Relationship Specialty Start Date End Date Dinesh Oakley MD [address] [place] [address], [address] [place] [address] [email or web address] PCP - General 02/04/17 Dinesh Oakley MD [address] [place] [address], [address] [place] [address] [email or web address] Insurance Assigned Provider 06/14/1712/28/22 documented as of this encounter Additional Source Comments The information contained in this document represents components of the legal health record. It is not the complete legal health record.[facility]
--- NOTE | 2025-03-09 10:41 | P.CONAN_ITS ---
Documented by User: Steffanie Owens NP 03/22/25 09:35 HPI - Anesthesia Eval Consult details Narrative: 64yo M for TUR Prostate with plasma button PMFSH Active Problems Active Problems: All Active Problems Bladder outlet obstruction (Acute) Erectile dysfunction (Acute) Renal stones (Acute) Past Medical History Medical History Asthma Renal stones Surgical History Surgical History H/O colonoscopy History of lithotripsy Social History Social History Patient Tobacco Use Status: Never used Tobacco Meds Allergies Allergy/AdvReac Type Severity Reaction Status Date / Time No Known Allergies (No Known Allergy Verified 03/14/25 10:06 Allergies*) Assessment and Plan Assessment Anesthesia Assessment: Chart Reviewed Documented by User: Lewis Douglass MD 03/14/25 10:29 PMFSH Past Medical History Medical History Asthma Renal stones Functional capacity: independent ambulation Surgical History Surgical History H/O colonoscopy History of lithotripsy Social History Social History Patient Tobacco Use Status: Never used Tobacco Meds Allergies Allergy/AdvReac Type Severity Reaction Status Date / Time No Known Allergies (No Known Allergy Verified 03/14/25 10:06 Allergies*) Exam Airway Mallampati Class: III TM Dist: >3cm Neck ROM: Full Loose/Missing/Broken Teeth: No Documented by User: Chanel Cardenas MD 03/14/25 11:00 [facility] Past Medical History Medical History Asthma Renal stones Family History Family history of problems with anesthesia: No Surgical History Surgical History H/O colonoscopy History of lithotripsy History of Problems with Anesthesia: No Social History Social History Patient Tobacco Use Status: Never used Tobacco Meds Allergies Allergy/AdvReac Type Severity Reaction Status Date / Time No Known Allergies (No Known Allergy Verified 03/14/25 10:06 Allergies*) Exam Airway Heart: rrr Lungs: cta Assessment and Plan Assessment Anesthesia Assessment: Anesthesia Plan Discussed Final Anesthetic Review Family History of Problems with Anesthesia: No History of Problems with Anesthesia: No NPO: Yes ASA Class: II Final Preanesthetic Review: No Changes in Pt Med Stat, Meds/Allgs Chart Reviewed, Consent Obtained/Reviewed and Anes Risks/Benef Reviewed Patient Risk: Low Procedure Risk: Low Anesthetic Plan Anesthetic Plan: GA and Agree w/ Assess. and Plan Disposition: Standard PACU
[2025-03-14 10:07] VITALS: BMI 29.1
[2025-03-14 10:19] VITALS: BP 122/70; PULSE 67; RESP 15; TEMP 37.1; O2SAT 98
[2025-03-14] MEDS: Lactated Ringers 1,000 ML 100 ML IVCONT (10:31)
--- NOTE | 2025-03-14 11:07 | MHC.SHP ---
Pre-Procedural Eval Section A - 24 Hr Update-Section A only Date of Service: 03/14/25 The patient is an INPATIENT: No Changes since office visit: No Cold of Flu in the past 2 weeks, No New Medical Problems, No Changes in Medication and No Patient answered all questions The patient has been examined within 24 hours of the surgical procedure. The History & Physical has been completed within 30 days and I have reviewed it.: Yes Section B - Complete if H&P > 30 days Chief Complaint: Bladder-neck obstruction Details of Present Illness: Plasma button prostate incision Relevant Family History (Specify if Yes): No Relevant Social History: None Present Medications: see Short Stay Collaborative assessment Medical History: No relevant PMH History of Previous Operations: No relevant previous surgery Allergies: Allergies Allergy/AdvReac Type Severity Reaction Status Date / Time No Known Allergies (No Known Allergy Verified 03/14/25 10:06 Allergies*) Review of Systems Sugical H&P ROS: Negative: Constitution, Cardiovascular, Respiratory, Neurological, Psychiatric, Hem-Onc, Allergic/Immunologic, Gastrointestinal, Genitourinary, Musculoskeletal, Integumentary, Endocrine and Eyes/Ears/Nose/Throat Exam Surgical H&P Exam: Normal: HEENT, Normal: Heart, Normal: Lungs, Normal: Extremities, Normal: Abdomen, Normal: Skin and Normal: Neurological Plan Diagnosis/Plan: Unchanged I have reviewed the history and physical and performed a pertinent physical examination on my patient. No changes have occurred unless specified. Time Spent With Patient Time: Total time managing care of this patient today ____ minutes.
--- NOTE | 2025-03-14 11:37 | P.OP_ITS ---
Operative Note Operative Note Date of Service: 03/14/25 Narrative: PreOperative Diagnosis: Bladder outlet obstruction Post Operative Diagnosis: Bladder outlet obstruction Procedure: Transurethral incision of the prostate Surgeon: Dr Vijay Mora Anesthesia: General Indications for procedure: 35 g prostate with bladder outlet obstruction and low flow. Procedure: After informed consent was verified the patient was brought to the operating room and placed in a supine position. Anesthesia was administered per protocol. Patient was placed in modified dorsal lithotomy position and prepped and draped in a sterile fashion. Safety pause time-out was confirmed. Antibiotics have been given. Twenty-four [place] resectoscope was inserted per urethra. No abnormalities found the anterior posterior urethra. A high riding bladder neck was seen. The bladder was filled on both ureteric orifices were seen in normal position away from our area of interest. In the Olympus plasma button was secured to the resectoscope. Incisions were made running from 2 cm distal to each ureteric orifice through the bladder neck and mucosa down the prostate to the veru. This was repeated on both sides. Hemostasis was controlled with cautery. Prostate incisions allowed the prostate to relax in a more open fashion. The resectoscope was removed. A 22 [place] Teixeira catheter was placed in 30 cc was placed in the balloon. The bladder was irrigated without difficulty. A snap was then used to gain traction that will be left through transportation and then removed. The Teixeira catheter was capped without difficulty. Pathology: None Drains: Teixeira catheter
[2025-03-14 11:50] VITALS: BP 113/67; PULSE 77; RESP 20; TEMP 36.6; O2SAT 95
[2025-03-14 11:55] VITALS: BP 123/77; PULSE 93; RESP 16; O2SAT 95
[2025-03-14 12:00] VITALS: BP 129/76; PULSE 88; RESP 14; O2SAT 97
[2025-03-14 12:05] VITALS: BP 134/73; PULSE 83; RESP 16; O2SAT 96
[2025-03-14 12:32] VITALS: BP 140/79; PULSE 72; RESP 16; TEMP 36.5; O2SAT 98
--- NOTE | 2025-03-14 14:32 | PC.NURSE ---
Post op urinary catheter care instructions clarified with Dr. Mora-patient called, updated on instructions, and patient verbalized understanding.
== END 2025-03-14 13:34 | disposition home or self-care (01) ==
PROVIDERS: PCP Family Medicine; Visit Provider Urology
PROC: 0VT08ZZ Resection of Prostate, Via Natural or Artificial Opening Endoscopic (ICD-10-PCS; CPT 52601; principal; 2025-03-14 11:40)
DX: N32.0 Bladder-neck obstruction (principal); N52.9 Male erectile dysfunction, unspecified; Z87.442 Personal history of urinary calculi; Z79.899 Other long term (current) drug therapy
CPT/HCPCS: 52601; A4649; J0131; J1100; J1956; J2003; J2250; J2405; J2704; J3010

== ENCOUNTER → 2025-03-14 09:57 | Outpatient (BNV) | payer MEDICARE, MEDICAID, SELFPAY | PROVIDERS: PCP Family Medicine; Visit Provider Urology | DX: N32.0 Bladder-neck obstruction (principal); N40.1 Benign prostatic hyperplasia with lower urinary tract symptoms | CPT/HCPCS: 52450 ==

== ENCOUNTER → 2025-03-16 08:25 | Outpatient (BNVA) | payer BC, MEDICAID, SELFPAY | PROVIDERS: PCP Family Medicine; Visit Provider Urology | DX: Z46.6 Encounter for fitting and adjustment of urinary device (principal); N32.0 Bladder-neck obstruction | CPT/HCPCS: 51700; 51798 ==

== ENCOUNTER 2025-03-31 13:04 | Outpatient (AMB) | payer BC, MEDICAID, SELFPAY ==
--- NOTE | 2025-03-31 13:05 | A.OFFVIS_ITS ---
Intake Visit Reasons: TURP follow up Intake Note: Patient is present for Post Op TURP DOS 03/14/25 Urology Medication:TADALAFIL (not taking ) Antibiotic Allergy:NONE Blood Thinner:NONE PVR : 0 mls Hydro Station Supervisor Required: No Accompanied by: Self / Same As Patient Allergies No Known Allergies (No Known Allergies*) Allergy (Verified 03/31/25 13:18) HPI Comments Details: Griffin is a pleasant male. He is a patient of Dr. Oakley. He seen for the following urologic conditions - nephrolithiasis - erectile dysfunction - lower urinary tract symptoms Six week follow-up prosthetic incision Bladder emptying Off medications Follow-up six-month with PSA and uroflow Lower urinary tract symptoms Progressive primarily feelings of incomplete emptying and weakness of stream Prior use of tamsulosin with retrograde ejaculation Urinary flow - 02/12 Q max 10 cc, average 5 cc, voided volume 140 cc with no residual. Reading nomogram under 25th percentile Bladder ultrasound 35 g prostate high residual Erectile dysfunction Tadalafil 20 mg p.r.n. Nephrolithiasis Prior history ESWL x2 Conservative management with fluid intake Imaging - 06/12 renal ultrasound small right kidney no stone seen - 06/13 renal ultrasound small right kidney stone - 06/14 renal ultrasound no stones seen - 06/15 renal ultrasound no stone seen PSA followed with PCP [facility] Medical History Asthma Renal stones Surgical History H/O colonoscopy History of lithotripsy Social History Patient Tobacco Use Status: Never used Tobacco Review of Systems Const Denies chills and Denies fever(s) Card Reports no additional complaints and Denies syncope Resp Denies cough GI Denies abdominal pain and Denies heartburn Reports as per HPI and Denies change in libido Neuro Denies syncope Psych Denies change in libido Endo Denies change in libido Physical Exam Const General: cooperative, healthy appearing, comfortable and no acute distress Orientation/consciousness: patient oriented x3 HEENT Face and sinus: Yes normal facial exam Mouth: moist mucous membranes Neck Neck: Yes normal visual inspection, Yes full ROM and Yes trachea midline Chest Chest palpation & inspection: normal inspection of the chest Resp Effort & Inspection: normal respiratory effort, able to speak in complete sentences and no respiratory distress GI Inspection: Yes normal to inspection Back/Spine/Pelvis Cervical Spine: normal cervical lordosis Thoracic/Lumbar Spine: thoracic and lumbar spine normal to inspection Skin General skin exam: no rashes or lesions noted Neuro General: patient oriented x3, gait normal, tone normal and moves all extremities Extrem General: Yes normal to inspection and Yes capillary refill normal Office Procedures Post Void Residual Post Residual Void Post Void Residual (PVR): 0 [id number] Void Residual by ultrasound Results AMB Urinalysis, Automated UA Leukoctes 0 Yousuf/uL Last Edit by Sasha Herrera [facility] on 03/31/25 13:20 UA Nitrite Negative Last Edit by Sasha Herrera [facility] on 03/31/25 13:20 UA Urobilinogen 0.2 mg/dL Last Edit by Sasha Herrera [facility] on 03/31/25 13:20 UA Protein 15 mg/dL Last Edit by Sasha Herrera [facility] on 03/31/25 13:20 UA pH 6.0 Last Edit by Sasha Herrera [facility] on 03/31/25 13:20 UA Blood 200 Cecilio/uL Last Edit by Sasha Herrera [facility] on 03/31/25 13:20 UA Specific Foster 1.015 Last Edit by Sasha Herrera [facility] on 03/31/25 13:2 0 UA Ketone Negative Last Edit by Sasha Herrera [facility] on 03/31/25 13:20 UA Bilirubin 0 mg/dL Last Edit by Sasha Herrera [facility] on 03/31/25 13:20 UA Glucose 0 mg/dL Last Edit by Sasha Herrera [facility] on 03/31/25 13:20 Results Reviewed Results Reviewed: Laboratory Last Values Urine pH (Auto) 6.0 03/31/25 13:19 Specific Foster (Auto) 1.015 03/31/25 13:19 Urine Protein (Auto) 15 mg/dL 03/31/25 13:19 Glucose (UA)(Auto) 0 mg/dL 03/31/25 13:19 Urine Ketones (Auto) Negative 03/31/25 13:19 Urine Blood (Auto) 200 Cecilio/uL 03/31/25 13:19 Urine Nitrite (Auto) Negative 03/31/25 13:19 Urine Bilirubin (Auto) 0 mg/dL 03/31/25 13:19 Urine Urobilinogen (Auto) 0.2 mg/dL 03/31/25 13:19 Leukocyte Esterase (Auto) 0 Yousuf/uL 03/31/25 13:19 Assessment & Plan Assessment & Plan (1) Erectile dysfunction: Code(s): N52.9 - Male erectile dysfunction, unspecified Category: Medical (2) Bladder outlet obstruction: Code(s): N32.0 - Bladder-neck obstruction Category: Medical Plan Keep follow-up in my Orders: Orders AMB Urinalysis Automated Today N13.8 - Other obstructive and reflux uropathy, N40.1 - Benign prostatic hyperplasia with lower urinary tract symptoms AMB Post Void Residual by ultrasound Today N40.1 - Benign prostatic hyperplasia with lower urinary tract symptoms Patient Instructions: This note is constructed using voice recognition software. While every effort has been made to ensure accuracy cargo trimmer errors may have been included. Imaging studies, laboratory and physical exam results were discussed and reviewed in detail. No major barriers to patient understanding were identified. An opportunity to ask questions regarding the treatment plan was provided. All questions were answered. The patient expressed understanding and agreement with the above treatment plan. The patient is aware they should contact our office by phone for worsening of their current condition or the appearance of new urologic symptoms. Compliance is encouraged with any medications and followup testing that is ordered. It is a privilege to participate in the urologic care of your patient. If you have any questions or concerns regarding treatment for the above conditions, or other urologic issues, please do not hesitate to contact me. The office telephone contact is [phone]. Sincerely, Dr Vijay Mora MD, [facility] - Urology Compassionate Specialist Care for the Genitourinary System Coding Level of Care Code Global (08275) Diagnoses Erectile dysfunction N52.9 Bladder outlet obstruction N32.0 CPT Codes Post Residual Void - PVR CPT Code: 61644-Lrqo Void Residual by ultrasound ([id number])
--- OUTSIDE RECORDS SUMMARY | 2025-03-31 20:06 | XMS_ITS | Clinical Summary ---
Author Organization [facility] Address [address] [place] [address] Phone Care Team Providers Care Test Engineer Nuclear Equipment Name Role Phone Dinesh Oakley MD Primary Care Provider [phone] Allergies No known active allergies Medications chlorhexidine [...] this should help to resolve his symptoms. Immunizations Immunization Administration Dates Next Due Td, [...] Description 07/15/2025 1:00 PM EDT Office Visit [facility] [place] [facility] [address] [place] [address] [place] [address] Dinesh Oakley MD [address] [facility], [address] [place] [address] [email or web address] Health Maintenance Due Date Last Done Comments COLOGUARD 2003 FIT TEST 2003 FOBT 2003 SIGMOIDOSCOPY 2003 VIRTUAL COLONOSCOPY 2003 PNEUMOCOCCAL VACCINES (50+ years) (1 of 1 - PCV) 2008 ZOSTER VACCINES (1 of 2) 2008 INFLUENZA VACCINE (#1) 2024 COVID-19 VACCINE (1 - 2024- season) 2024 DEPRESSION SCREENING 07/14/2025 07/14/2024 LIPID PANEL 07/15/2025 07/15/2024, 08/2018, 09/23/2018, Additional history exists COLONOSCOPY 05/25/2027 05/25/2020, [...] Procedure Name Priority Date/Time Associated Diagnosis Comments LIPID PANEL Routine 07/15/2024 10:34 AM EDT Class 1 obesity due to excess calories without serious comorbidity with body mass index (BMI) of 32.0 to 32.9 in adult ENDOSCOPY, COLON 05/25/2020 11:3 5 AM EST HEPATITIS C ANTIBODY, QUALITATIVE Routine 09/23/2018 1:11 PM EDT Annual physical exam from Last 3 Months or Most Recently Relevant to Health Maintenance Results * (ABNORMAL) Lipid panel (07/15/2024 10:34 AM EDT) HDL 38 mg/dL [facility] Comment: Interpretation <40 mg/dL: Low HDL cholesterol (major risk factor for CHD) Greater than or equal to 60 mg/dL: High HDL cholesterol ( negative risk factor for CHD) HDL - cholesterol is affected by a number of factors, e.g. smoking, excerise, hormones, sex and age. CHOLESTEROL 195 0 - 240 mg/dL [facility] TRIGLYCERIDES 114 30 - 160 mg/dL [facility] LDL 134(H) 50 - 129 mg/dL [facility] Comment: LDL levels in terms of risk for coronary heart disease: <100 mg/dL: Optimal 100-129 mg/dL: Near or above optimal 130-159 mg/dL: Borderline high 160-189 mg/dL: High >190 mg/dL: Very High CARDIAC RISK RATIO 5.1(H) 3.4 - 5.0 C [facility] Blood 07/15/2024 10:3 4 AM EDT 07/15/2024 10:37 AM EDT us Dinesh Oakley MD LAB BLOOD BKR ORDERABLES F inal Result [facility] [address] [place], [place] [id number] * ENDOSCOPY, COLON (05/25/2020 11:35 AM EST) Narrative Transcriptions Caden Parrish MD - 05/25/2020 11:35 AM EST Patient Name: Griffin Ferrer Attending MD:: CADEN PARRISH MD Procedure Date: 05/25/2020 11:35 AM Date of : 1960 Age: 60 Admit Type: Outpatient Gender: Male Room: [place] [address] Referring MD: DINESH OAKLEY MD Exam Type: [...] monitored continuously. The Olympus adult variable colonoscope [id number] #7was introduced through the anus and advanced [...] 11:35 AM Procedure Code(s): --- Professional --- 41393, Colonoscopy, flexible; with removal of tumor(s), polyp(s), or other lesion(s) by snare technique --- Technical --- 65426, Colonoscopy, flexible; with removal of tumor(s), polyp(s), or other lesion(s) by snare technique CPT copyright 2018 [employer]. All rights reserved. The codes documented in this report are preliminary and upon lead pressman roto gravure printing reviewmay be revised to meet current compliance requirements. Procedure Date: 05/25/2020 11:35:[address] [place] [address] Dinesh Oakley MD GI PROCEDURE ORDERABLES Ed ited Result - Final * Hepatitis C antibody, qualitative (09/23/2018 1:11 PM EDT) HCV Negative Negative [facility] Comment: This is a screening test and should be confirmed with molecular testing Blood 09/23/2018 1:11 PM EDT 09/23/2018 1:14 PM EDT Dinesh Oakley MD LAB BLOOD BKR ORDERABLES F inal Result [facility] [address] [place] [address] from Last 3 Months or Most Recently Relevant to Health Maintenance Insurance [place] BLUE REPLACEMENT [facility] & B [place] BLUE REPLACEMENT [facility] A & B [place] BLUE REPLACEMENT [facility] MEDICARE PART A & B [facility] MEDICARE PPO BLUE REPLACEMENT [facility] MEDICARE PART A & B [facility] MEDICARE PPO BLUE REPLACEMENT [facility] PART A & B [place] BLUE REPLACEMENT [facility] PART A & B Care Teams Test Engineer Nuclear Equipment Relationship Specialty Start Date End Date Dinesh Oakley MD [address] [place] [address], [address] [place] [address] PCP - General 02/04/17 Additional Source Comments The information contained in this document represents components of the legal health record. It is not the complete legal health record.[facility]
--- OUTSIDE RECORDS SUMMARY | 2025-03-31 20:07 | XMS_ITS | Encounter Summary ---
Author Organization [employer] Address [address] [place] [address] Care Team Providers Care Electronics Processing Supervisor Name Role Phone Unavailable Primary Care Provider Unavailabl e Reason for Visit * Reason Comments Med Refill Encounter Details Date Type Department Care Team (Late st Contact Info) Description 03/22/[address] [facility] DENTAL [address] [place] [address] Ritu Ramirez DDS [address] [place] [address] Social History Tobacco Use Types Packs/Day Years [...] Description 07/27/2025 12:00 PM EDT Office Visit [facility] DENTAL [address] [place] [address] Madina Lazaro [address] [place] [address] documented as of this encounter Visit Diagnoses Not on filedocumented in this encounter
--- OUTSIDE RECORDS SUMMARY | 2025-03-31 20:07 | XMS_ITS | Encounter Summary ---
Author Organization [employer] Address [address] [place] [address] Care Team Providers Care Extension Forester Name Role Phone Unavailable Primary Care Provider Unavailabl e Reason for Visit * Reason Comments Med Refill Encounter Details Date Type Department Care Team (Late st Contact Info) Description 03/22/2024 Refill [facility] DENTAL [address] [place] [address] Ritu Ramirez DDS [address] [place] [address] Social History Tobacco Use Types Packs/Day Years [...] Description 07/27/2025 12:00 PM EDT Office Visit [facility] DENTAL [address] [place] [address] Madina Lazaro [address] [place] [address] documented as of this encounter Visit Diagnoses Not on filedocumented in this encounter
--- OUTSIDE RECORDS SUMMARY | 2025-03-31 20:07 | XMS_ITS | Encounter Summary ---
Author Organization [facility] Address [address] [facility] [address] [place] [address] Phone Care Team Providers Care Real Estate Account Executive Name Role Phone Dinesh Oakley MD Primary Care Provider [phone]- [phone] Dinesh Oakley MD Unavailable [phone] Encounter Details Date Type Department Care Team (Late st Contact Info) Description 05/31/2019 Ancillary Orders Virtual Department [address] [place] [address] Gildardo Zelaya MD [address] [place] [address] Calculus of kidney Social History Tobacco Use [...] high school, GED, job training, learning the [place] Citizen language, technical skills, or developing parenting skills)? [...] Description 07/15/2025 1:00 PM EDT Office Visit [facility] [address] [place] [address] Dinesh Oakley MD [address] [place] [address], [address] [place] [address] [email or web address] documented as of this encounter Visit Diagnoses Diagnosis Calculus of kidney documented in this encounter Additional Health Concerns Infection Onset Date Last Indicated Resolved Time CoV-Risk 12/26/2019 12/28/2019 01/09/2020 1:24 AM EDT CoV-Risk 09/10/2021 09/10/2021 09/21/2021 1:24 AM EDT Assessment Noted Time PHQ-2 Depression Total Score: 0 09/22/19 19 3:19 PM EDT documented as of this encounter Care Teams Real Estate Account Executive Relationship Specialty Start Date End Date Dinesh Oakley MD [address] [place] [address], [address] [place] [address] PCP - General 02/04/17 Dinesh Oakley MD [address] [place] [address], [address] [place] [address] Insurance Assigned Provider 2/24/18 9/ 9/23 documented as of this encounter Additional Source Comments The information contained in this document represents components of the legal health record. It is not the complete legal health record.[facility]
--- OUTSIDE RECORDS SUMMARY | 2025-03-31 20:07 | XMS_ITS | Encounter Summary ---
Author Organization [facility] Address [address] [facility] [address] [place] [address] Phone Care Team Providers Care Plant Health Manager Name Role Phone Dinesh Oakley MD Primary Care Provider [phone] Dinesh Oakley MD Unavailable [phone] Encounter Details Date Type Department Care Team (Late st Contact Info) Description 05/25/2020 Procedure Pass [facility] Endoscopy Admitting Dept Virtual Department [address] [place] [address] Social History Tobacco Use Types Packs/Day Years [...] high school, GED, job training, learning the [place] language, technical skills, or developing parenting skills)? [...] 1:00 PM EDT Office Visit [facility] [address] [place] [address] [place] [address] Dinesh Oakley MD [address] [facility], [address] [place] [address] [employer] documented as of this encounter Visit Diagnoses Not on filedocumented in this encounter Additional Health Concerns Infection Onset Date Last Indicated Resolved Time CoV-Risk 09/10/2021 09/10/2021 09/21/2021 1:24 AM EDT Assessment Noted Time PHQ-2 Depression Total Score: 0 09/22/19 19 3:19 PM EDT documented as of this encounter Care Teams Plant Health Manager Relationship Specialty Start Date End Date Dinesh Oakley MD [address] [place] [address], [address] [place] [address] PCP - General 02/04/17 Dinesh Oakley MD [address] [place] [address], [address] [place] [address] Insurance Assigned Provider 06/14/1712/28/22 documented as of this encounter Additional Source Comments The information contained in this document represents components of the legal health record. It is not the complete legal health record.[facility]
--- OUTSIDE RECORDS SUMMARY | 2025-03-31 20:07 | XMS_ITS | Encounter Summary ---
Author Organization [employer] Address [address] [place] [address] [place] [address] Care Team Providers Care Melon Packer Name Role Phone Unavailable Primary Care Provider Unavailabl e Reason for Visit * Reason Comments Med Refill Encounter Details Date Type Department Care Team (Late st Contact Info) Description 03/24/2024 Refill [facility] DENTAL [address] [place] [address] Ritu Ramirez DDS [address] [place] [address] Social History Tobacco Use Types Packs/Day Years [...] Description 07/27/2025 12:00 PM EDT Office Visit [facility] DENTAL [address] [place] [address] Madina Lazaro [address] [place] [address] documented as of this encounter Visit Diagnoses Not on filedocumented in this encounter
--- OUTSIDE RECORDS SUMMARY | 2025-03-31 20:08 | XMS_ITS | Encounter Summary ---
Author Organization [facility] Address [address] [facility] [address] [place] [address] Phone Care Team Providers Care Optical Coating Technician Name Role Phone Dinesh Oakley MD Primary Care Provider [phone] Encounter Details Date Type Department Care Team (Late st Contact Info) Description 07/26/2024 Procedure Pass [facility], Ct Scan - [address] [address] Social History Tobacco Use Types Packs/Day Years [...] 1:21 AM EDT Lucy Hopkins RN * [place] Suicide Severity Rating Scale (Screener/Recent Self-Report) Question [...] Description 07/15/2025 1:00 PM EDT Office Visit [address] [place] [address] Dinesh Oakley MD [address] [facility], [address] [place] [address] [email or web address] documented as of this encounter Visit Diagnoses Not on filedocumented in this encounter Additional Health Concerns Assessment Noted Time PHQ-2 Depression Total Score: 2 07/15/19 25 1:34 PM EDT documented as of this encounter Care Teams Optical Coating Technician Relationship Specialty Start Date End Date Dinesh Oakley MD [address] [place] [address], [address] [place] [address] [email or web address] PCP - General 02/04/17 documented as of this encounter Additional Source Comments The information contained in this document represents components of the legal health record. It is not the complete legal health record.[facility]
--- OUTSIDE RECORDS SUMMARY | 2025-03-31 20:08 | XMS_ITS | Clinical Summary ---
Author Organization [employer] Address [address] [facility] 7 [place] [address] Care Team Providers Care Balloon Artist Name Role Phone Unavailable Primary Care Provider [...] 07/27/2025 12:00 PM EDT Office Visit [facility] DENTAL [address] [place] [address] Madina Lazaro [address] [place] [address] Health Maintenance Due Date Last Done Comments [...] Health Maintenance Insurance [place] DENT[place] - HSN FULL (MEDICAID)
--- OUTSIDE RECORDS SUMMARY | 2025-03-31 20:08 | XMS_ITS | Encounter Summary ---
Author Organization [facility] Address [address] [facility] [address] [place] [address] Phone Care Team Providers Care Leaf Sticker Name Role Phone Dinesh Oakley MD Primary Care Provider [phone] Dinesh Oakley MD Unavailable [phone] Encounter Details Date Type Department Care Team (Late st Contact Info) Description 12/08/2017 Ancillary Orders Virtual Department [address] [place] [address] Gildardo Zelaya MD [address] [place] [address] Renal stone Social History Tobacco Use Types [...] Description 07/15/2025 1:00 PM EDT Office Visit [facility] [address] [address] Dinesh Oakley MD [address] [facility], [address] [place] [address] documented as of this encounter Results * [...] x 5.5 cm while the left kidney pachvvcl44.8 x 5.5 cm. No nephrolithiasis or hydronephrosis is evident. No renalparenchymal mass lesion is seen. IMPRESSION: No current findings nephrolithiasis or hydronephrosis are noted. S/S: Follow-up previous renal calculi POS - [id number] Gildardo Zelaya MD [facility] [place] [place] Result documented in this encounter Visit Diagnoses Diagnosis Renal stone Calculus of kidney Renal stone Calculus of kidney documented in this encounter Additional Health Concerns Infection Onset Date Last Indicated Resolved Time CoV-Risk 12/26/2019 12/28/2019 01/09/2020 1:24 AM EDT CoV-Risk 09/10/2021 09/10/2021 09/21/2021 1:24 AM EDT documented as of this encounter Care Teams Leaf Sticker Relationship Specialty Start Date End Date Dinesh Oakley MD [address] [place] [address], [address] [place] [address] PCP - General 02/04/17 Dinesh Oakley MD [address] [place] [address], [address] [place] [address] [email or web address] Insurance Assigned Provider 06/14/1712/28/22 documented as of this encounter Additional Source Comments The information contained in this document represents components of the legal health record. It is not the complete legal health record.[facility]
--- OUTSIDE RECORDS SUMMARY | 2025-03-31 20:08 | XMS_ITS | Encounter Summary ---
Author Organization [facility] Address [address] [facility] [address] [place] [address] Phone Care Team Providers Care Shipping Team Leader Name Role Phone Dinesh Oakley MD Primary Care Provider [phone] Dinesh Oakley MD Unavailable [phone] Encounter Details Date Type Department Care Team (Latest Contact Info) Description 06/11/2017 Transcribe Orders [facility] Phlebotomy [address] [place] [address] Gildardo Zelaya MD [address] [place] [address] Uric acid nephrolithiasis (Primary Dx) Social History [...] Description 07/15/2025 1:00 PM EDT Office Visit [facility] [address] [place] [address] Dinesh Oakley MD 22 [facility], [address] [place] [address] documented as of this encounter Results * Stone analysis (06/11/2017 7:00 AM EST) SOURCE Kidney [facility] ANTONELLA LOMBARDO/ROBERT HESTER DR 1ST CONSTITUENT 90% Calcium oxalate monohydrate [facility] ANTONELLA LOMBARDO/ROBERT HESTER DR 2ND CONSTITUENT 10% Calcium phosphate (apatite) [facility]/PATH SUPERIOR NICHOLS Comment: (NOTE) ADDITIONAL INFORMATION This test was developed and its performance characteristics determined by [facility] in a manner consistent with CLIA requirements. This test has not been cleared or approved by the U.S. Food and Drug Administration. 3RD CONSTITUENT Test component not applicable or not reported. [facility]/ROBERT VILLAVICENCIO, MAJOR Test component not applicable or not reported. [facility]/PATH SUPERIOR DR VILLAVICENCIO, MINOR Test component not applicable or not reported. [facility]/PATH SUPER[address] DR AGUILERA, MAJOR Test component not applicable or not reported. [facility]/ROBERT AGUILERA, MINOR Test component not applicable or not reported. [facility] MED/PATH SUPERIOR NICHOLS COMMENT Test component not applicable or not reported. [facility]/PATH SUPERIOR NICHOLS Other (Passed Stone) 06/11/2017 7:00 AM EST 06/11/2017 4:26 PM EST us Gildardo Zelaya MD BODY FLUIDS AND [facility] ISA[facility] ORDERABLES Final Result [facility]/PATH SUPERIOR NICHOLS [address] [place] [address] documented in this encounter Visit Diagnoses Diagnosis Uric acid nephrolithiasis- Primary documented in this encounter Additional Health Concerns Infection Onset Date Last Indicated Resolved Time CoV-Risk 12/26/2019 12/28/2019 01/09/2020 1:24 AM EDT CoV-Risk 09/10/2021 09/10/2021 09/21/2021 1:24 AM EDT documented as of this encounter Care Teams Shipping Team Leader Relationship Specialty Start Date End Date Dinesh Oakley MD [address] [place] [address], [address] [place] [address] [email or web address] PCP - General 02/04/17 Dinesh Oakley MD [address] [place] [address], [address] [place] [address] [email or web address] Insurance Assigned Provider 06/14/1712/28/22 documented as of this encounter Additional Source Comments The information contained in this document represents components of the legal health record. It is not the complete legal health record.[facility]
--- OUTSIDE RECORDS SUMMARY | 2025-03-31 20:09 | XMS_ITS | Encounter Summary ---
Author Organization [facility] Address [address] [facility] [address] [place] [address] Phone Care Team Providers Care Technician Automatic Name Role Phone Dinesh Oakley MD Primary Care Provider [phone] Dinesh Oakley MD Unavailable [phone] Encounter Details Date Type Department Care Team (Late st Contact Info) Description 05/29/2017 Ancillary Orders [facility] External Provider Virtual Department [address] [place] [address] Gildardo Zelaya MD [address] [place] [address] Kidney stone Social History Tobacco Use Types [...] Description 07/15/2025 1:00 PM EDT Office Visit [facility] Medicine [address] [place] [address] [place] [address] Dinesh Oakley MD 22 [facility], [address] [place] [address] [email or web address] documented as of this encounter Results * [...] documented as of this encounter Care Teams Technician Automatic Relationship Specialty Start Date End Date Dinesh Oakley MD [address] [place] [address], [address] [place] [address] PCP - General 02/04/17 Dinesh Oakley MD [address] [place] [address], [address] [place] [address] [email or web address] Insurance Assigned Provider 06/14/1712/28/22 documented as of this encounter Additional Source Comments The information contained in this document represents components of the legal health record. It is not the complete legal health record.[facility]
--- OUTSIDE RECORDS SUMMARY | 2025-03-31 20:09 | XMS_ITS | Encounter Summary ---
Author Organization [facility] Address [address] [facility] 7 [place] [address] Care Team Providers Care Plating Machine Operator Name Role Phone Unavailable Primary [...] Description 07/27/2025 12:00 PM EDT Office [facility] [address] [place] [address] Madina Lazaro [address] [place] [address] documented as of this encounter Visit Diagnoses Not on filedocumented in this encounter
--- OUTSIDE RECORDS SUMMARY | 2025-03-31 20:09 | XMS_ITS | Encounter Summary ---
Author Organization [facility] Address [address] [facility] [address] [place] [address] Phone Care Team Providers Care Casino Host Name Role Phone Dinesh Oakley MD Primary Care Provider [phone] Reason for Visit * Reason Onset Date Comments Results 12/30/2022 Encounter Details Date Type Department Care Team (Late st Contact Info) Description 12/30/2022 Telephone [facility] Medicine [address] [place] [address] Pily Lemus RN [email or web address] Results Social History Tobacco Use Types Packs/Day [...] Description 07/15/2025 1:00 PM EDT Office Visit [address] [place] [address] Dinesh Oakley MD [address] [place] [address], [address] [place] [address] [email or web address] documented as of this encounter Visit Diagnoses Diagnosis Primary osteoarthritis of both hips- Primary documented in this encounter Additional Health Concerns Assessment Noted Time PHQ-2 Depression Total Score: 0 06/29/19 21 11:07 AM EST documented as of this encounter Care Teams Casino Host Relationship Specialty Start Date End Date Dinesh Oakley MD [address] [place] [address], [address] [place] [address] [email or web address] PCP - General 02/04/17 documented as of this encounter Additional Source Comments The information contained in this document represents components of the legal health record. It is not the complete legal health record.[facility]
--- OUTSIDE RECORDS SUMMARY | 2025-03-31 20:09 | XMS_ITS | Encounter Summary ---
Author Organization [facility] Address [address] [facility] [address] [place] [address] Phone Care Team Providers Care Mixer Operator Name Role Phone Dinesh Oakley MD Primary Care Provider [phone] Dinesh Oakley MD Unavailable [phone] Encounter Details Date Type Department Care Team (Latest Contact Info) Description 03/19/2017 Transcribe Orders [facility] Phleb Main 30 [place] [address] Gildarod Zelaya MD [address] [place] [address] Uric acid nephrolithiasis (Primary Dx) Social History [...] Description 07/15/2025 1:00 PM EDT Office Visit [facility] Medicine [address] [place] [address] Dinesh Oakley MD 22 [facility], [address] [place], [place] [address] [email or web address] documented as of this encounter Results * PSA, free and total (03/19/2017 4:01 PM EST) PSA, TOTAL 1.1 <=3.5 ng/mL [facility]PATH SUPERIOR NICHOLS FREE PSA 0.6 ng/mL [facility] MED/PATH SUPERIOR NICHOLS FREE/TOT PSA RATIO SEE NOTE ratio [facility]PATH SUPERIOR NICHOLS Comment: (NOTE) Ratio not calculated because clinical usefulness is not defined except in range of total PSA 4.0-10.0 ng/mL. ADDITIONAL INFORMATION The testing method is an electrochemiluminescence assay manufactured by [employer] and performed on the Modular or Catia system. Values obtained with different assay methods or kits may be different and cannot be used interchangeably. Test results cannot be interpreted as absolute evidence for the presence or absence of malignant disease. Blood 03/19/2017 4:01 PM EST 03/19/2017 4:03 PM EST Gildardo Zelaya MD LAB BLOOD BKR [facility] [place] Final Result [facility]/PATH SUPERIOR NICHOLS [address] [place] [address] documented in this encounter Visit Diagnoses Diagnosis Uric acid nephrolithiasis- Primary documented in this encounter Additional Health Concerns Infection Onset Date Last Indicated Resolved Time CoV-Risk 12/26/2019 12/28/2019 01/09/2020 1:24 AM EDT CoV-Risk 09/10/2021 09/10/2021 09/21/2021 1:24 AM EDT documented as of this encounter Care Teams Mixer Operator Relationship Specialty Start Date End Date Dinesh Oakley MD [address] [place] [address], [address] [place] [address] PCP - General 02/04/17 Dinesh Oakley MD [address] [place] [address], [address] [place] [address] Insurance Assigned Provider 06/14/1712/28/22 documented as of this encounter Additional Source Comments The information contained in this document represents components of the legal health record. It is not the complete legal health record.[facility]
--- OUTSIDE RECORDS SUMMARY | 2025-03-31 20:09 | XMS_ITS | Encounter Summary ---
Author Organization [facility] Address [address] [facility] [address] [place] [address] Phone Care Team Providers Care Active Directory Engineer Name Role Phone Dinesh Oakley MD Primary Care Provider [phone] Dinesh Oakley MD Unavailable [phone] Encounter Details Date Type Department Care Team (Late st Contact Info) Description 02/08/2017 Ancillary Orders Virtual Department [address] [place] [address] Gildardo Zelaya MD [address] [place] [address] Renal stones Social History Tobacco Use Types [...] Description 07/15/2025 1:00 PM EDT Office Visit [facility] [address] [place] [address] Dinesh Oakley MD 22 [facility], [address] [place] [address] documented as of this encounter Results * [...] right kidney POS [id number] Gildardo Zelaya MD [facility]al Result documented in this encounter Visit Diagnoses Diagnosis Renal stones Renal stones documented in this encounter Additional Health Concerns Infection Onset Date Last Indicated Resolved Time CoV-Risk 12/26/2019 12/28/2019 01/09/2020 1:2 4 AM EDT CoV-Risk 09/10/2021 09/10/2021 09/21/2021 1:24 AM EDT documented as of this encounter Care Teams Active Directory Engineer Relationship Specialty Start Date End Date Dinesh Oakely MD [address] [place] [address], [address] [place] [address] [email or web address] PCP - General 02/04/17 Dinesh Oakley MD [address] [place] [address], [address] [place], [place] [id number] [email or web address] Insurance Assigned Provider 06/14/1712/28/22 documented as of this encounter Additional Source Comments The information contained in this document represents components of the legal health record. It is not the complete legal health record.[facility]
--- OUTSIDE RECORDS SUMMARY | 2025-03-31 20:10 | XMS_ITS | Encounter Summary ---
Author Organization [facility] Address [address] [place] [address] Care Team Providers Care Executive Business Coach Name Role Phone Unavailable Primary Care Provider [...] Description 07/27/2025 12:00 PM EDT Office Visit [facility] [address] [place] [address] Madina Lazaro [address] [place] [address] documented as of this encounter Visit Diagnoses Not on filedocumented in this encounter
--- OUTSIDE RECORDS SUMMARY | 2025-03-31 20:10 | XMS_ITS | Encounter Summary ---
Author Organization [facility] Address [address] [facility] [address] [place] [address] Phone Care Team Providers Care Process Laboratory Specialist Name Role Phone Dinesh Oakley MD Primary Care Provider [phone] Dinesh Oakley MD Unavailable [phone] Reason for Visit * Reason Onset Date Comments Tick Bite 07/24/2022 Encounter Details Date Type Department Care Team (Late st Contact Info) Description 07/24/2022 Nurse Triage [facility] Medicine [address] [place] [address] Dinesh Oakley MD 22 [facility], [address] [place] [address] [email or web address] Tick Bite Social History Tobacco Use Types [...] high school, GED, job training, learning the [place] language, technical skills, or developing parenting skills)? [...] To Pcp Disposition Comments: Protocols used: Tick Tdit-Aaxsq-Ji Care Advice Given Care Advice Patient/Caregiver understands [...] after removing the tick. * Apply an auvj-xks-sghvuur antibiotic ointment to the bite once. EXPECTED [...] and PICARIDIN (ICARIDIN). You can buy them nddi-bgy-jsrurnw at the drugstore or an outdoor sports [...] LEMONEUCALYPTUS) insect repellent. You can buy it vbxy-iri-tyeyfvd at the drugstore or an outdoor sportsstore. [...] seed, apple seed, watermelon seed; unsure) Note: [place] ticks can be the size of a [...] your last menstrual period? Protocols used: TICK [id number] * [place] - 07/24/2022 10:08 AM EDT Pt called stating he was bitten by a tick yesterday while working in the [employer]. Pt stated that he pulled it off but would like a prescription. Please contact and advise. documented in this encounter Plan of Treatment Upcoming Encounters Date Type Department Care Team (Late st Contact Info) Description 07/15/2025 1:00 PM EDT Office Visit [facility] [place] [facility] [address] [place] [address] [place] [address] Dinesh Oakley MD 22 [facility], [address] [place] [address] [email or web address] documented as of this encounter Visit Diagnoses Diagnosis Tick bite- Primary Other, multiple, and unspecified sites, insect bite, nonvenomous, without mention of infection documented in this encounter Additional Health Concerns Assessment Noted Time PHQ-2 Depression Total Score: 0 06/29/19 11:07 AM EST documented as of this encounter Care Teams Process Laboratory Specialist Relationship Specialty Start Date End Date Dinesh Oakley MD [address] [place] [address], [address] [place] [address] [email or web address] PCP - General 02/04/17 Dinesh Oakley MD [address] [place] [address], [address] [place] [address] Insurance Assigned Provider 06/14/1712/28/22 documented as of this encounter Additional Source Comments The information contained in this document represents components of the legal health record. It is not the complete legal health record.[facility]
== END 2025-03-31 14:06 | disposition home or self-care (01) ==
LOC: HO.HUSH 13:04
PROVIDERS: PCP Family Medicine; Visit Provider Urology
DX: N40.1 Benign prostatic hyperplasia with lower urinary tract symptoms (principal); N13.8 Other obstructive and reflux uropathy; N52.9 Male erectile dysfunction, unspecified; N32.0 Bladder-neck obstruction
CPT/HCPCS: 99024

== ENCOUNTER → 2025-03-31 13:04 | Outpatient (BNVA) | payer BC, MEDICAID, SELFPAY | PROVIDERS: PCP Family Medicine; Visit Provider Urology | DX: Z48.816 Encounter for surgical aftercare following surgery on the genitourinary system (principal); N40.1 Benign prostatic hyperplasia with lower urinary tract symptoms; N52.9 Male erectile dysfunction, unspecified; N32.0 Bladder-neck obstruction; N13.8 Other obstructive and reflux uropathy; R39.14 Feeling of incomplete bladder emptying; Z90.79 Acquired absence of other genital organ(s) | CPT/HCPCS: 51798; 81003 ==